=== PATIENT | male | born 1940 | race Caucasian/White ===

== ENCOUNTER 2020-08-02 13:12 | Outpatient (CLI) | payer MEDICARE, SELFPAY ==
[2020-08-02 14:15] LABS: Alanine Aminotransferase 19 U/L (16-63); Alkaline Phosphatase 44 U/L (46-116); Anion Gap 11 mmol/L (8-16); Aspartate Amino Transferase 22 U/L (15-37); Bilirubin,Total 0.8 mg/dL (0.00-1.00); Blood Urea Nitrogen 29 mg/dL (7-18); Calcium 9.3 mg/dL (8.5-10.1); Carbon Dioxide 26 mmol/L (21-32); Chloride 99 mmol/L (98-108); Estimated Glomerular Filt Rate 25; Glucose 98 mg/dL (70-99); Osmolality Calculated 287 mOsm/kg (285-295); Potassium 4.2 mmol/L (3.5-5.1); Prostate Specific Antigen 6.2 ng/mL (< OR = 4.0); Sodium 136 mmol/L (136-145); Total Protein 7.1 g/dL (6.4-8.2)
== END 2020-08-02 13:13 | disposition home or self-care (01) ==
LOC: CHSLAB 13:14
PROVIDERS: PCP Nurse Practitioner Family; Visit Provider Urology
DX: C61 Malignant neoplasm of prostate (principal)
CPT/HCPCS: 36415; 80053; 84153

== ENCOUNTER 2020-09-13 14:54 | Outpatient (CLI) | payer MEDICARE, MEDICAID, SELFPAY ==
--- NOTE | 2020-09-13 14:57 | ECG_ITS ---
Measurements Intervals [place] Rate: 55 P: 69 [place]: 214 QRS: -46 QRSD: 144 T: 51 QT: 467 QTc: 448 Interpretive Statements SINUS BRADYCARDIA WITH FIRST DEGREE AV BLOCK RIGHT BUNDLE BRANCH BLOCK LEFT ANTERIOR FASCICULAR BLOCK BASELINE ARTIFACT- II, III, AVF ABNORMAL ECG Electronically Signed On 09-13-2020 16:00:31 CDT by Johnie Messina D.O.
[2020-09-13 15:15] LABS: Basophils Absolute Auto 0.07 K/mm3 (0.00-0.10); Basophils Percent Auto 0.9 % (0.0-1.0); Eosinophils Absolute Auto 0.32 K/mm3 (0.02-0.50); Hematocrit 40.3 % (37.0-46.0); Hemoglobin 13.7 g/dL (12.4-15.3); Immature Granulocyte Absolute 0.05 K/mm3 (0.00-0.00); Immature Granulocyte Percent A 0.6 % (0.0-0.0); Lymphocytes Absolute Auto 1.96 K/mm3 (1.10-4.50); Lymphocytes Percent Auto 24.3 % (18.0-42.0); Mean Corpuscular Hemoglobin 31.6 pg (27.0-31.0); Mean Corpuscular Volume 93.1 fL (78.0-102.0); Monocytes Absolute Auto 0.66 K/mm3 (0.10-0.90); Monocytes Percent Auto 8.2 % (2.0-11.0); Platelet Count Result 229 K/mm3 (150-420); Red Blood Count 4.33 M/mm3 (4.70-6.10); Red Cell Distribution Width 12.6 % (11.6-14.4); White Blood Count 8.1 K/mm3 (4.8-10.8)
[2020-09-13 15:24] LABS: Alanine Aminotransferase 20 U/L (16-63); Alkaline Phosphatase 50 U/L (46-116); Anion Gap 11 mmol/L (8-16); Aspartate Amino Transferase 12 U/L (15-37); Bilirubin,Total 0.8 mg/dL (0.00-1.00); Blood Urea Nitrogen 27 mg/dL (7-18); Calcium 9.3 mg/dL (8.5-10.1); Carbon Dioxide 24 mmol/L (21-32); Chloride 100 mmol/L (98-108); Estimated Glomerular Filt Rate 25; Glucose 91 mg/dL (70-99); Magnesium 1.6 mg/dL (1.8-2.4); Osmolality Calculated 285 mOsm/kg (285-295); Sodium 135 mmol/L (136-145); Total Protein 7.3 g/dL (6.4-8.2)
[2020-09-16 19:45] LABS: Vitamin D 25 Hydroxy 12 ng/mL (30-100)
== END 2020-09-13 14:55 | disposition home or self-care (01) ==
LOC: CHSLAB 14:56
PROVIDERS: PCP Nurse Practitioner Family; Visit Provider Nurse Practitioner Family
DX: R00.2 Palpitations (principal); R53.1 Weakness; Z79.899 Other long term (current) drug therapy
CPT/HCPCS: 36415; 80053; 82306; 83735; 85025; 93005

== ENCOUNTER 2020-10-14 20:22 | Inpatient (IN) | payer MEDICARE, MEDICAID, SELFPAY ==
--- NOTE | ~2020-10-14 | XR_ITS ---
XR chest 1V portable DATE: 10/14/2020 20:59 INDICATION: Cough, congestion, hypertension TECHNIQUE: 2 portable AP views on 10/14/2020 at 2100 hours COMPARISON: None FINDINGS: Normal heart size. No hilar or mediastinal enlargement. No pulmonary infiltrate or consolidation, pleural effusion or pulmonary vascular congestion or pneumo thorax is detected. Diffuse osteopenia. IMPRESSION: No active cardiopulmonary disease Reviewed, dictated and finalized at location A.
[2020-10-14 20:29] VITALS: BP 145/69; PULSE 62; RESP 16; TEMP 36.7; O2SAT 97
[2020-10-14 20:34] VITALS: BP 145/69; PULSE 60; RESP 13; O2SAT 98
--- NOTE | 2020-10-14 20:41 | ECG_ITS ---
Measurements Intervals [place] Rate: 57 P: 70 [place]: 213 QRS: -70 QRSD: 149 T: 51 QT: 439 QTc: 430 Interpretive Statements SINUS BRADYCARDIA WITH FIRST DEGREE AV BLOCK RIGHT BUNDLE BRANCH BLOCK LEFT ANTERIOR FASCICULAR BLOCK ABNORMAL ECG Electronically Signed On 10-15-2020 7:37:47 CDT by Johnie Messina D.O.
--- NOTE | 2020-10-14 20:42 | ED.SOB ---
HPI - SOB/Dyspnea General Chief Complaint: Shortness of Breath/Dyspnea Stated Complaint: lung congestion Time Seen by Provider: 10/14/20 20:29 Source: RN notes reviewed History of Present Illness HPI Narrative: Patient presents to emergency department from home for shortness of breath. Patient states symptoms began 3 days ago. States that his lungs feel tight and he feels that there is congestion in them but he cannot bring them up he states that he has had no fevers or chills denies any chest pain or abdominal pain does note occasional nausea he states that he has been coughing hard to bring up the congestion he feels that is been nonproductive denies any other symptoms at this time denies any tobacco use Related Data Allergies Allergy/AdvReac Type Severity Reaction Status Date / Time amlodipine Allergy Intermediate angioedema Verified 10/14/20 21:07 Review of Systems Review of Systems: Narrative: Gen.: Denies fevers or chills Eyes: Denies eye pain or visual change ENT: Denies congestion Respiratory: see HPI CV: Denies chest pain or palpitations GI: Denies abdominal pain nausea, emesis or diarrhea Musculoskeletal: Denies back pain or muscle pain Neuro: Denies numbness, tingling, weakness or focal weakness Skin: Denies rash Except as documented, all other systems reviewed and negative [facility] Past Medical History Medical History Erectile dysfunction HTN (hypertension) Kidney function abnormal Primary osteoarthritis Surgical History Surgical History No pertinent past surgical history Social History Social History Smoking status: Never smoker Tobacco type: cigarettes Alcohol intake: never Substance use: never Substance use type: does not use Exam Narrative: Exam Narrative: APPEARANCE: No acute distress, nontoxic, resting in bed EYES: EOMI HEENT: Normocephalic, atraumatic, OMM RESPIRATORY: No respiratory distress Clear to auscultation bilaterally with no rhonchi wheezing or rales. CARDIOVASCULAR: Regular rate and rhythm without murmurs rubs or gallops. ABDOMINAL: Soft, nontender, nondistended, no rebound or guarding MUSCULOSKELETAl: Moves all extremities. No clubbing, cyanosis or edema. NEURO: Awake and alert. Following commands, speech normal, no focal deficits SKIN:: Warm, dry. No rashes lesions or abrasions PSYCHIATRIC: Normal affect/mood, Course Course Emergency Course: Discussed with Dr. Camargo presentation work-up agrees with admission at this time request consult cardiology in a.m. Discussed with patient and family results of workup and diagnosis. Discussed need for admission. Patient and family understand and agree to current treatment plan Vital Signs Vital signs: Vital Signs Temperature 98.1 F 10/14/20 20:29 Pulse Rate 62 10/14/20 20:29 Respiratory Rate 16 10/14/20 20:29 Blood Pressure 145/69 H 10/14/20 20:29 Pulse Oximetry 97 10/14/20 20:29 Temperature 98.1 F 10/14/20 20:29 Pulse Rate 50 L 10/14/20 21:40 Respiratory Rate 20 10/14/20 21:40 Blood Pressure 120/77 10/14/20 21:04 Pulse Oximetry 99 10/14/20 21:04 MDM - SOB/Dyspnea Lab Data Result diagrams: 10/14/20 20:53 10/14/20 20:53 Labs: Lab Results 10/14/20 10/14/20 10/14/20 Range/Units 20:53 20:53 20:53 WBC 6.8 (4.5-10.0) K/mm3 RBC 4.38 L (4.6-6.20) M/mm3 Hgb 13.8 L (14.0-18.0) g/dL Hct 39.9 L (42.0-52.0) % MCV 91.1 (80-100) fl MCH 31.5 (26-34) pg MCHC 34.6 (32-36) g/dl RDW 12.5 (11.5-14.5) % Plt Count 228 (150-375) k/mm3 MPV 10.0 (7.4-10.4) fl Immature Gran % (Auto) 0.6 H (0-0.5) % Neut % (Auto) 68.8 (45.5-73.1) % Lymph % (Auto) 19.0 (18.3-44.2) % Vance % (Auto) 7.2 (2.6-8.5) % Eos % (Auto) 3.7 (0-4.4) % Baso % (Au
[2020-10-14 21:03] LABS: Basophils Absolute Auto 0.1 K/mm3 (0.0-0.1); Basophils Percent Auto 0.7 % (0.2-1.2); Eosinophils Absolute Auto 0.3 K/mm3 (0-0.3); Eosinophils Percent Auto 3.7 % (0-4.4); Hematocrit 39.9 % (42.0-52.0); Hemoglobin 13.8 g/dL (14.0-18.0); Immature Granulocyte Absolute 0.04 K/mm3 (0.00-0.031); Immature Granulocyte Percent A 0.6 % (0-0.5); Lymphocytes Absolute Auto 1.29 K/mm3 (0.9-3.2); Mean Corpuscular HGB Conc 34.6 g/dl (32-36); Mean Corpuscular Hemoglobin 31.5 pg (26-34); Mean Corpuscular Volume 91.1 fl (80-100); Monocytes Absolute Auto 0.5 K/mm3 (0.1-0.6); Monocytes Percent Auto 7.2 % (2.6-8.5); Neutrophils Absolute Auto 4.7 K/mm3 (1.3-6.7); Neutrophils Percent Auto 68.8 % (45.5-73.1); Platelet Count Result 228 k/mm3 (150-375); Red Blood Count 4.38 M/mm3 (4.6-6.20); Red Cell Distribution Width 12.5 % (11.5-14.5); White Blood Count 6.8 K/mm3 (4.5-10.0)
[2020-10-14 21:04] VITALS: BP 120/77; PULSE 54; RESP 11; O2SAT 99
[2020-10-14 21:12] LABS: INR 0.9; Prothrombin Time 13.2 Seconds (11.1-14.7)
[2020-10-14 21:13] LABS: Partial Thromboplastin Time 26.4 SECONDS (22.3-36.8)
[2020-10-14 21:14] LABS: Alanine Aminotransferase 15 U/L (4-50); Albumin Level 4.2 g/dL (3.5-5.1); Alkaline Phosphatase 50 U/L (38-126); Anion Gap 12 mmol/L (8-16); Aspartate Amino Transferase 25 U/L (17-59); Bilirubin,Total 0.7 mg/dL (0.2-1.3); Blood Urea Nitrogen 33 mg/dL (9-20); Calcium 10.2 mg/dL (8.4-10.2); Carbon Dioxide 22 mmol/L (22-30); Chloride 102 mmol/L (98-107); Estimated CRCL calculation 22 ml/min; Estimated Glomerular Filt Rate 24; Glucose 143 mg/dL (75-110); Lipase 193 U/L (23-300); Potassium 3.4 mmol/L (3.4-5.0); Sodium 136 mmol/L (137-145)
[2020-10-14 21:25] LABS: NT Pro B Type Natriuretic Pept 273 pg/mL (5-100)
[2020-10-14] MEDS: ALBUTEROL SULFATE NEB 2.5 MG/0.5 ML INH 5 MG INHALATION (21:37)
[2020-10-14 21:40] VITALS: PULSE 50; RESP 20
[2020-10-14 21:40] LABS: Troponin I 0.044 ng/mL (0.000-0.034)
[2020-10-14] MEDS: IPRATROPIUM BR 0.02% INH SOLN 0.5 MG/2.5 ML VIAL INHALATION (21:41)
--- NOTE | 2020-10-14 22:10 | PM.IMHP ---
H&P: HPI History of Present Illness Date/Time: 10/15/20 01:00 Chief Complaint: shortness of breath Narrative: Patient presents to emergency department from home for shortness of breath and inability to cough since past 3 days. he reprots he felt like his lungs were tight and he was tryign to cough it up but was not able to and hence felt short of breath. he then comes to the ED for evaluation. he was given breathing treatment and he feels a little better currently. his workup with cxr and troponin and ekg was unremarkable. he is admitted under observation for further evaluation and monitoring. he reports that he was mowing his yard with a independent producer couple of weeks ago when he started having sob and chest pressure with diaphoreiss. this resolved but since then he has been having issues with vague palpitations and chest pressure etc and cough. he went to his pcp for evaluation. noted to hve bradycardia, he was on atenolol and also propranolol for his tremor. with bradycardia, he was advised to stop one of those. however he has not as he will feel more worse stopping them. he went to see switch inspector Dr. Langford and was planned to have nuclear stress test which is scheduled for this mid October. He is never smoker, no aclhol. no prior hx of heart disease. he has essential tremor and htn for which he takes medications regularly. Review of Systems Review of Systems: Narrative: - CONSTITUTIONAL: Denies weight loss, fever and chills. - HEENT: Denies changes in vision and hearing - RESPIRATORY: reports SOB and cough. - CV: reports palpitations and CP. - GI: Denies abdominal pain, nausea, vomiting and diarrhea. - : Denies dysuria and urinary frequency. - MSK: Denies myalgia and joint pain. - SKIN: Denies rash and pruritus. - NEUROLOGICAL: Denies headache and syncope. - PSYCHIATRIC: Denies recent changes in mood. Denies anxiety and depression. All systems reviewed & are unremarkable except as noted in HPI and below Constitutional: Constitutional: Reports fatigue and Reports weakness Neurologic: Reports weakness Endocrine: Endocrine: Reports fatigue [facility] Past Medical History Medical History Erectile dysfunction HTN (hypertension) Kidney function abnormal Primary osteoarthritis Surgical History Surgical History No pertinent past surgical history Family History Family History (Updated 10/15/20 @ 00:29 by Nikia Mahan RN) Father Stomach cancer Sibling Brain cancer Other Pancreatic cancer Social History Social History Smoking status: Never smoker Tobacco type: cigarettes Alcohol intake: never Substance use: never Substance use type: does not use Spiritual care concerns: No Meds Home Medications and Allergies Home Medications Medication Instructions Recorded Confirmed Type magnesium chloride 64 mg 64 mg PO DAILY #30 tablet 09/13/20 Rx (magnesium chloride) tablet,delayed release lisinopril 20 1 tablet PO DAILY #90 tablet 09/14/20 Rx mg-hydrochlorothiazide 25 mg tablet cholecalciferol (vitamin D3) 1,250 1,250 mcg PO WEEKLY #8 cap 09/18/20 Rx mcg (50,000 unit) capsule sertraline 25 mg tablet 25 mg PO DAILY #30 tablet 10/03/20 10/03/20 Rx Allergies Allergy/AdvReac Type Severity Reaction Status Date / Time amlodipine Allergy Intermediate angioedema Verified 10/14/20 21:07 Vital Signs Vital Signs - 24 hr 10/14/20 20:29 10/14/20 20:34 10/14/20 21:04 Temperature 98.1 F Pulse Rate 62 60 54 L Respiratory Rate 16 13 11 L Blood Pressure 145/69 H 145/69 H 120/77 Pulse Oximetry 97 98 99 10/14/20 21:40 Temperature Pulse Rate 50 L Respiratory Rate 20 Blood Pressure Pulse Oximetry Exam Narrative: Exam Narrative: GENERAL: The patient is well developed, not in acute distress
[2020-10-14 22:31] VITALS: BP 155/68; PULSE 50; RESP 14; O2SAT 100
[2020-10-15] VITALS (10 sets, daily range): BP systolic 109–185; BP diastolic 59–86; PULSE 40–64; RESP 14–16; TEMP 36.3–36.6; O2SAT 97–100
--- NOTE | 2020-10-15 00:08 | ADMGEN ---
This patient, River Sandhu, was admitted to IMU Room 203-01. Patient/family oriented to hospital policies and general routines including ID bracelet, bed and alarms, visiting hours, pain management, procedures, bathroom and other care routines, personal items, smoking policy, room service/diet, and visiting hours. Information on how to activate the Rapid Response Team has been discussed. Patient/Family are encouraged to report perceived risks to care and to ask questions if they do not understand what they are told or what they should do.
[2020-10-15 05:38] LABS: Basophils Absolute Auto 0.1 K/mm3 (0.0-0.1); Basophils Percent Auto 0.7 % (0.2-1.2); Eosinophils Absolute Auto 0.3 K/mm3 (0-0.3); Eosinophils Percent Auto 3.9 % (0-4.4); Hematocrit 39.4 % (42.0-52.0); Hemoglobin 13.5 g/dL (14.0-18.0); Immature Granulocyte Absolute 0.04 K/mm3 (0.00-0.031); Immature Granulocyte Percent A 0.5 % (0-0.5); Lymphocytes Absolute Auto 2.38 K/mm3 (0.9-3.2); Mean Corpuscular HGB Conc 34.3 g/dl (32-36); Mean Corpuscular Hemoglobin 31.6 pg (26-34); Mean Corpuscular Volume 92.3 fl (80-100); Mean Platelet Volume 10.7 fl (7.4-10.4); Monocytes Absolute Auto 0.7 K/mm3 (0.1-0.6); Neutrophils Absolute Auto 4.7 K/mm3 (1.3-6.7); Neutrophils Percent Auto 56.9 % (45.5-73.1); Platelet Count Result 214 k/mm3 (150-375); Red Blood Count 4.27 M/mm3 (4.6-6.20); Red Cell Distribution Width 12.4 % (11.5-14.5); White Blood Count 8.2 K/mm3 (4.5-10.0)
[2020-10-15 05:47] LABS: Alanine Aminotransferase 15 U/L (4-50); Albumin Level 3.9 g/dL (3.5-5.1); Alkaline Phosphatase 44 U/L (38-126); Anion Gap 10 mmol/L (8-16); Aspartate Amino Transferase 22 U/L (17-59); Bilirubin,Total 0.5 mg/dL (0.2-1.3); Blood Urea Nitrogen 32 mg/dL (9-20); Calcium 9.9 mg/dL (8.4-10.2); Carbon Dioxide 25 mmol/L (22-30); Chloride 102 mmol/L (98-107); Estimated CRCL calculation 24 ml/min; Estimated Glomerular Filt Rate 26; Glucose 120 mg/dL (75-110); Potassium 3.2 mmol/L (3.4-5.0); Sodium 137 mmol/L (137-145)
[2020-10-15 06:01] LABS: Troponin I 0.079 ng/mL (0.000-0.034)
[2020-10-15] MEDS: HEPARIN SODIUM 5,000 UNITS/ML VIAL 5000 UNITS SUB-Q ×2 (06:29→13:01)
[2020-10-15] MEDS: POTASSIUM CHLORIDE 20 MEQ TABLET PO (06:29)
[2020-10-15] MEDS: MAGNESIUM CHLORIDE 64 MG TABLET PO (09:38)
[2020-10-15] MEDS: guaiFENesin 12 HR 600 MG TABCR PO (09:39)
[2020-10-15] MEDS: lisinopriL 20 MG TABLET PO (09:39)
[2020-10-15] MEDS: hydroCHLOROthiazide 25 MG TABLET PO (09:39)
--- NOTE | 2020-10-15 09:41 | PM.CNCAR ---
Assessment and Plan Assessment and plan (1) Bradycardia: Code(s): R00.1 - Bradycardia, unspecified Status: Acute Assessment and Plan: Patient with bradycardia and bifascicular block which may be medication related. He has continued take his atenolol and propranolol until, he states, 2 - 3 days ago which, if that is the case, I'm surprised he is still bradycardic. He may have some underlying sinus node dysfunction contributing to his symptoms. 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 Continue to stay off beta-blockers and follow heart rate. (2) Elevated troponin: Code(s): R77.8 - Other specified abnormalities of plasma proteins Status: Acute Assessment and Plan: Mildly elevated troponin as described. No ischemic changes on EKG. Patient had a Lexiscan scheduled for later this month but we will do it tomorrow instead. (3) Chest tightness: Code(s): R07.89 - Other chest pain Status: Acute Assessment and Plan: Vague symptoms of ?lung tightness? and a feeling of congestion. No typical angina but symptoms could be anginal equivalents. Lexiscan stress test tomorrow. Echo scheduled also. (4) CKD (chronic kidney disease) stage 4, GFR 15-29 ml/min: Code(s): N18.4 - Chronic kidney disease, stage 4 (severe) Status: Acute Assessment and Plan: Trying to avoid exposure to IV contrast (such as for cardiac catheterization) to preserve renal function. (5) HTN (hypertension): Code(s): I10 - Essential (primary) hypertension Status: Acute Assessment and Plan: Blood pressure doing well on lisinopril HCT, off atenolol. History of Present Illness History of Present Illness Consult date/time: 10/15/20 09:41 Requesting physician: Twan Camargo MD Consult reason: Other Reason For Visit: Elevated troponin, dyspnea Narrative: Mr. River Sandhu is an 80-year-old male whom we were asked to see at the request of the hospitalist for advice and opinion regarding his shortness of breath and bradycardia. Mr. Sandhu John Dr. Langford for an initial consultation in the office on 09/26/2020 complaining have 1 episode of palpitations while cutting the grass associated with weakness and diaphoresis, and later developed transient parathesias of his hands, suggestive of angina. He was also noted to be bradycardic with a bifascicular block and a first-degree AV block. He was taking atenolol (for HTN) and propranolol (for essential tremor). Dr. Langford scheduled a Lexiscan stress test and recommended discontinuation of beta-blockers. Patient tried cutting out the beta-blockers but ?felt terrible,? and resumed them. He has stopped them again, 2 or 3 days ago. He came to the emergency room because of congestion, a feeling of phlegm but could not cough it out, and some vague lung tightness. He just did not feel right. Symptoms improved with nebulizer tx. No shortness of breath. He was noted to be bradycardic heart rates in the 30s to 60s, mostly in the 40s. He was admitted for evaluation. His troponins are up to 0.079. The patient also has hypertension, and essential tremor, CKD stage 3-4. Review of Systems Review of Systems: Narrative: Patient has found walking wears him out more than he used to and has started using his cane again. Constitutional: Constitutional: Reports no additional constitutional complaints Eyes: Eyes: Reports no additional eye complaints ENT: Denies nasal congestion Comments: Denies problems with allergies Cardiovascular: Cardiovascular: Denies chest pain, Reports diaphoresis, Denies pedal edema and Denies lightheadedness Comments: 1 episodes of palpitations after cutting the grass as described. Some vague chest tightness but no pressure. No arm discomfort. Respirat
--- NOTE | 2020-10-15 14:43 | PM.IMPN ---
Progress Note: A&P Assessment and Plan (1) Elevated troponin: Code(s): R77.8 - Other specified abnormalities of plasma proteins Status: Acute Assessment and Plan: 0.044-->0.079 ecg with no acute changes cxr cardiology consulted, recommendations appreciated ECHO ST tomorrow tele monitoring (2) Acute dyspnea: Code(s): R06.00 - Dyspnea, unspecified Status: Acute Assessment and Plan: resolved (3) Anxiety: Code(s): F41.9 - Anxiety disorder, unspecified Status: Acute (4) Heart palpitations: Code(s): R00.2 - Palpitations Status: Acute Assessment and Plan: resolved (5) CKD (chronic kidney disease) stage 4, GFR 15-29 ml/min: Code(s): N18.4 - Chronic kidney disease, stage 4 (severe) Status: Acute Assessment and Plan: #baseline cr mid 2s cr 2.4 avoid nephrotoxins monitor (6) HTN (hypertension): Code(s): I10 - Essential (primary) hypertension Status: Acute Assessment and Plan: continue home meds monitor (7) Bradycardia: Code(s): R00.1 - Bradycardia, unspecified Status: Acute Assessment and Plan: holding BB cardiology consulted, recommendations appreciated ST tomorrow tele monitoring Additional Plan patient admitted under observation status. Subjective Date/time seen: 10/15/20 14:43 pt seen and evaluated; continues with bradycardia Review of Systems Review of Systems: All systems reviewed & are unremarkable except as noted in HPI and below Exam Const: General: no acute distress, alert and awake Orientation/consciousness: patient oriented x3 HENMT: Head: normocephalic and atraumatic Ears: hearing grossly normal bilaterally and external ears normal Face and sinus: face symmetric Eyes: Pupils: Equal, round and reactive pupils present EOM: EOMs intact bilaterally Neck: Neck: full ROM and trachea midline Thyroid: thyroid normal Chest: Chest palpation & inspection: normal inspection of the chest Resp: Effort & Inspection: normal respiratory effort Auscultation: clear to auscultation bilaterally Cardio: Rate: regular rate Rhythm: regular rhythm Heart sounds: S1 normal heart sound present and S2 normal heart sound present GI: Inspection: normal to inspection GI Palp: Yes Soft to palpation Percussion: Yes normal to percussion Auscultation: normal bowel sounds : General: Yes no CVA tenderness Back/Spine/Pelvis: Back: no CVA tenderness Skin: General skin exam: normal color Rashes: no rashes Neuro: General: patient oriented x3 Cranial nerves: Yes Equal, round and reactive pupils present Speech: normal speech Extrem: Left lower extremity: full ROM Other: RBKA Psych: Appearance: grossly normal Affect: normal affect Judgement: Good judgement present (Psych) Objective Data Vital Signs Vital Signs: Vital Signs - 24 hr 10/14/20 20:29 10/14/20 20:34 10/14/20 21:04 Temperature 36.7 C Pulse Rate 62 60 54 L Respiratory Rate 16 13 11 L Blood Pressure 145/69 H 145/69 H 120/77 Pulse Oximetry 97 98 99 10/14/20 21:40 10/14/20 22:31 10/15/20 00:17 Temperature 36.3 C L Pulse Rate 50 L 50 L 64 Respiratory Rate 20 14 16 Blood Pressure 155/68 H 185/86 H Pulse Oximetry 100 100 10/15/20 02:00 10/15/20 03:48 10/15/20 04:00 Temperature 36.4 C L Pulse Rate 58 L 47 L 56 L Respiratory Rate 16 Blood Pressure 136/70 Pulse Oximetry 97 10/15/20 06:00 10/15/20 08:00 10/15/20 12:00 Temperature 36.6 C 36.5 C Pulse Rate 43 L 42 L 45 L Respiratory Rate 14 16 Blood Pressure 121/68 109/59 L Pulse Oximetry 98 98 Intake/Output Intake/Output: Intake & Output 10/12/20 10/13/20 10/14/20 10/15/20 23:59 23:59 23:59 23:59 Intake Total 480 Output Total 150 Balance 330 Meds/Results Medications: Active Medications Generic Name Dose Route Start Last Admin Trade Name Freq PRN Reason Stop Dose Admin Albuterol 2 puff
--- NOTE | 2020-10-15 18:01 | PC.NURSE ---
Pt called RN into room and stated he wanted to go home. He wishes to keep his original stress test date of 10/25. Risks of leaving against medical advice explained. Contacted Dr Kitchen (Hospitalist), Dr Grossman (Jeweler Apprentice), and Yael (manager of data)
--- NOTE | 2020-10-15 18:17 | PC.NURSE ---
Spoke with Dr. Grossman when she returned the call from the page to the exchange. Notified her that the patient left AMA after explaining risks of leaving and benefits of staying and completing his stress test in the morning. stated that she will make a note of his departure in his chart.
== END 2020-10-15 18:03 | disposition left against medical advice (07) | DRG 309 ==
LOC: ANHED 21:13 → ANHIMU 22:37
PROVIDERS: Admitting Provider Internal Medicine; Emergency Provider Emergency Medicine; PCP Nurse Practitioner Family; Visit Provider Internal Medicine
DX: R00.1 Bradycardia, unspecified (principal); N18.4 Chronic kidney disease, stage 4 (severe); T50.905A Adverse effect of unspecified drugs, medicaments and biological substances, initial encounter; I45.3 Trifascicular block; I25.119 Atherosclerotic heart disease of native coronary artery with unspecified angina pectoris; I12.9 Hypertensive chronic kidney disease with stage 1 through stage 4 chronic kidney disease, or unspecified chronic kidney disease; R77.8 Other specified abnormalities of plasma proteins; G25.0 Essential tremor; R06.00 Dyspnea, unspecified; F41.9 Anxiety disorder, unspecified; Z79.899 Other long term (current) drug therapy
CPT/HCPCS: 36415; 71045; 80048; 80053; 80076; 83690; 83880; 84484; 85025; 85610; 85730; 93005; 94640; 99285; A9270; J1644

== ENCOUNTER 2020-10-19 14:08 | Outpatient (CLI) | payer MEDICARE, MEDICAID, SELFPAY ==
--- NOTE | 2020-10-19 14:15 | ECHO_ITS ---
Patient Info Name: River Sandhu Age: 80 years : 1940 Gender: Male Ht: 72 in Wt: 190 lbs BSA: 2.10 m2 HR: 70 bpm BP: 125 / 66 mmHg Heart Rhythm: Sinus Rhythm Technical Quality: Poor Exam Date: 10/19/2020 2:39 PM Exam Location: [facility], [place] Patient Status: Outpatient Admit Date: 10/19/2020 Staff Ordering Physician: Chica Senior NP Chocolate Dipper: Aleshia López RDCS Attending Provider: Chica Senior NP Referring Physician: Parrish THOMPSON; Exam Type: CA echo dop color flow w con Study Info Indications R07.9 - Chest pain, unspecified Complete two-dimensional, color flow and Doppler transthoracic echocardiogram is performed with contrast to opacify the left ventricle and to improve the deliniation of the left ventricle endocardial borders. Strain analysis performed. Contrast/Agitated Saline Contrast/Ag. Saline: Definity Amount: 6.00 ml New IV Access: Antecubital Space and Right Site Condition: No extravasation, Site dressing applied and IV removed Reason for Poor Study: poor echocardiographic windows History/Risk Factors Hypertension: Yes Dyslipidemia: No Peripheral Arterial Disease (PAD): No Obesity: No Renal Disease: No Diabetes Mellitus: No Tobacco Use: Never Cerebrovascular Disease: No Family History: Coronary Artery Disease Dialysis: None Frailty Scale (CSHA): 4: Vulnerable Summary 1. Left ventricular chamber dimension is normal. 2. Definity contrast administered improved wall motion interpretation. 3. Left ventricular systolic function is normal, estimated at 60-65%. 4. There is mildly increased left ventricular wall thickness. 5. The left ventricular diastolic function is grade I diastolic dysfunction. 6. E/e' is minimally elevated. 7. Global longitudinal strain is abnormal at -13.7%. 8. There is mild aortic valve regurgitation. 9. No pulmonary hypertension, estimated pulmonary arterial systolic pressure is 21 mmHg. Left Ventricle E/e' is minimally elevated. Global longitudinal strain is abnormal at -13.7%. Definity contrast administered improved wall motion interpretation. Left ventricular chamber dimension is normal. Left ventricular systolic function is normal, estimated at 60-65%. There is mildly increased left ventricular wall thickness. The left ventricular diastolic function is grade I diastolic dysfunction. Right Ventricle Right ventricular systolic function is normal and with normal TAPSE 2.5 cm. Right ventricular chamber dimension is normal. Left Atria Left atrial chamber dimension is normal. Right Atria Right atrial chamber dimension is normal. Aortic Valve The aortic valve is trileaflet. There is no aortic valve stenosis. There is mild aortic valve regurgitation. Pulmonic Valve There is no pulmonic regurgitation. Mitral Valve There is no mitral valve stenosis. There is no mitral valve regurgitation. Tricuspid Valve There is no tricuspid valve regurgitation. No pulmonary hypertension, estimated pulmonary arterial systolic pressure is 21 mmHg. Pericardium/Pleural There is no pericardial effusion. Inferior Vena Cava Inferior vena cava is not well visualized. Aorta The aortic root size at the sinus of Valsalva is not well visualized. Left Ventricular Outflow Tract Name
== END 2020-10-19 14:09 | disposition home or self-care (01) ==
LOC: CHSIMG 14:10
PROVIDERS: PCP Nurse Practitioner Family; Visit Provider Nurse Practitioner Family
DX: R07.9 Chest pain, unspecified (principal)
CPT/HCPCS: C8929

== ENCOUNTER 2020-12-11 13:48 | Outpatient (CLI) | payer MEDICARE, MEDICAID, SELFPAY ==
--- NOTE | ~2020-12-11 | XR_ITS ---
[id number] DATE: 12/11/2020 14:17 INDICATION: Posterior lateral left chest, abdomen pain following a fall TECHNIQUE: PA chest. 3 views of left ribs COMPARISON: None FINDINGS: Mildly displaced posterolateral left eighth and ninth acute rib fractures. Diffuse osteopenia. There are degenerative changes at left acromioclavicular and glenohumeral joints. There is degenerati ve spurring and mild levoscoliosis of the thoracic spine. Normal heart size. Mild left basilar atelectasis. The lungs otherwise appear clear. No pleural effusion or apparent pneu mothorax. IMPRESSION: Recent mildly displaced posterolateral left eighth and ninth rib fractures Reviewed, dictated and finalized at Location [facility]. Reviewed, dictated and finalized at location B. IMPRESSION: Recent mildly displaced posterolateral left eighth and ninth rib fr actures
== END 2020-12-11 13:49 | disposition home or self-care (01) ==
PROVIDERS: PCP Nurse Practitioner Family; Visit Provider Nurse Practitioner Family
DX: R10.9 Unspecified abdominal pain (principal)
CPT/HCPCS: 71101

== ENCOUNTER 2021-03-01 13:33 | Outpatient (CLI) | payer MEDICARE, SELFPAY ==
[2021-03-01 14:38] LABS: Alanine Aminotransferase 18 U/L (16-63); Alkaline Phosphatase 63 U/L (46-116); Anion Gap 10 mmol/L (8-16); Aspartate Amino Transferase < 10 U/L (15-37); Bilirubin,Total 0.5 mg/dL (0.00-1.00); Blood Urea Nitrogen 23 mg/dL (7-18); Calcium 9.2 mg/dL (8.5-10.1); Carbon Dioxide 27 mmol/L (21-32); Chloride 103 mmol/L (98-108); Estimated Glomerular Filt Rate 29; Glucose 95 mg/dL (70-99); Osmolality Calculated 293 mOsm/kg (285-295); Potassium 4.3 mmol/L (3.5-5.1); Prostate Specific Antigen 5.6 ng/mL (< OR = 4.0); Sodium 140 mmol/L (136-145); Total Protein 7.1 g/dL (6.4-8.2)
== END 2021-03-01 13:34 | disposition home or self-care (01) ==
LOC: CHSLAB 13:35
PROVIDERS: PCP Nurse Practitioner Family; Visit Provider Urology
DX: C61 Malignant neoplasm of prostate (principal)
CPT/HCPCS: 36415; 80053; 84153

== ENCOUNTER 2021-10-03 12:40 | Outpatient (CLI) | payer OTHER, SELFPAY ==
[2021-10-03 14:01] LABS: Alanine Aminotransferase 16 U/L (16-63); Alkaline Phosphatase 66 U/L (46-116); Anion Gap 9 mmol/L (8-16); Aspartate Amino Transferase 15 U/L (15-37); Bilirubin,Total 0.6 mg/dL (0.00-1.00); Blood Urea Nitrogen 23 mg/dL (7-18); Calcium 9.2 mg/dL (8.5-10.1); Carbon Dioxide 26 mmol/L (21-32); Chloride 99 mmol/L (98-108); Estimated Glomerular Filt Rate 32; Glucose 94 mg/dL (70-99); Osmolality Calculated 281 mOsm/kg (285-295); Potassium 4.2 mmol/L (3.5-5.1); Prostate Specific Antigen 5.2 ng/mL (< OR = 4.0); Sodium 134 mmol/L (136-145)
== END 2021-10-03 12:41 | disposition home or self-care (01) ==
LOC: CHSLAB 12:43
PROVIDERS: PCP Nurse Practitioner Family; Visit Provider Urology
DX: C61 Malignant neoplasm of prostate (principal)
CPT/HCPCS: 36415; 80053; 84153

== ENCOUNTER 2023-04-28 16:07 | Inpatient (IN) | payer OTHER, SELFPAY ==
[2023-04-28] VITALS (11 sets, daily range): BP systolic 129–174; BP diastolic 71–100; PULSE 65–75; RESP 10–20; TEMP 36.2–36.4; O2SAT 97–100; BMI 23.4
--- NOTE | ~2023-04-28 | XR_ITS ---
Portable chest x-ray Comparison: 10/14/2020 Clinical History: Chest pain Findings: Lungs are clear, without focal consolidation or pleural effusion. Cardiomediastinal silho uette is stable. Bones and soft tissues are unremarkable. Impression: Clear lungs. Reviewed, dictated and finalized at [facility]. RVISOR MACHINING Impression: Clear lungs.
--- NOTE | ~2023-04-28 | CT_ITS ---
EXAMINATION: CT brain wo con DATE: 04/28/2023 16:49 INDICATION: Weakness after fall TECHNIQUE: Computed tomography (CT) of the head was performed without intravenous contrast. The dose- length product was 756.67 mGy-cm. Automated exposure control and iterative reconstruction technique w ere employed. COMPARISON: CT dated 04/28/2023 FINDINGS: No acute intracranial hemorrhage, infarction, mass or mass effect. No ventriculomegaly or m idline shift. Basilar cisterns are patent. There are scattered mild periventricular and subcortical w amanda matter changes, most likely related to small vessel ischemic disease (microangiopathy). Paranasa l sinuses and mastoids are pneumatized. No depressed skull fractures. IMPRESSION: 1. No acute intracranial abnormality. Reviewed, dictated and finalized at location A. RANCE BILLER
--- NOTE | ~2023-04-28 | CT_ITS ---
EXAMINATION: CT cervical spine wo con DATE: 04/28/2023 16:49 INDICATION: Status post fall. Weakness. Neck pain. TECHNIQUE: Computed tomography (CT) of the cervical spine was performed without intravenous contrast. The dose-length product was 542 mGy-cm. Automated exposure control and iterative reconstruction technique were employed. COMPARISON: None FINDINGS: There is severe disc narrowing at C5-6 and C6-7 with endplate hypertrophy at C5-6 causing b ilateral neural foraminal narrowing. There is degenerative anterolisthesis at C2-3 and C4-5. Vertebra l body heights are maintained. No evidence for perched facet. There are dystrophic calcifications in the posterior neck soft tissues. Craniovertebral junction is normal. Odontoid process within normal l imits. There is multilevel uncinate and facet hypertrophy. Lung apices are normal. There is carotid a therosclerosis. There is an 11 mm hypodense left thyroid mass, likely of no clinical significance. Th ere is apical pleural thickening/scarring. IMPRESSION: 1. No acute abnormality of the cervical spine. 2: Severe cervical spondylosis. Reviewed, dictated and finalized at location A. DRY ROOM ATTENDANT
--- NOTE | ~2023-04-28 | CT_ITS ---
EXAMINATION: CT chest abdomen pelvis wo con DATE: 04/28/2023 17:00 CAKE WINDER INDICATION: Status post fall. Weakness. TECHNIQUE: Computed tomography (CT) of the chest, abdomen, and pelvis was performed without intraveno us contrast. The dose-length product was 913.87 mGy-cm. Automated exposure control and iterative reconstruction technique were employed. COMPARISON: Renal ultrasound dated 09/23/2016 FINDINGS: CHEST CT: No significant pleural or pericardial effusion. Borderline heart size. No thoracic lymphadenopathy. T here is atherosclerosis. Calcified granuloma right upper lobe. No endobronchial lesions. There is dep endent atelectasis. No focal airspace consolidation. No pneumothorax. There is a chronic left ninth r ib fracture. There is degenerative change of the shoulders and hips. ABDOMEN/PELVIS CT: There are calcified granulomas of the spleen. There is severe bilateral hydroureteronephrosis to the bladder. There are are multiple bladder diverticula. No obstructing ureteral stone or mass. Prostate gland is enlarged. There is moderate fecal loading of the rectum. No bowel obstruction. There is bila teral renal atrophy. Bladder is markedly distended. The liver, pancreas, adrenal glands are unremarka ble. Mild thoracic and lumbar spondylosis. There is grade 1 spondylolisthesis at L3-4. IMPRESSION: 1. Severe bilateral hydroureteronephrosis to the level of the bladder without evidence for obstructin g stone or mass. The bladder is severely distended with multiple diverticula, likely due to outlet ob struction from enlarged prostate gland. There is bilateral renal atrophy. Reviewed, dictated and finalized at location A. WINDER IMPRESSION: 1. Severe bilateral hydroureteronephrosis to the level of the bladder without e vidence for obstructing stone or mass. The bladder is severely distended with m ultiple diverticula, likely due to outlet obstruction from enlarged prostate gl and. There is bilateral renal atrophy.
--- NOTE | ~2023-04-28 | US_ITS ---
EXAMINATION: US renal BI DATE: 04/29/2023 09:02 INDICATION: Acute renal failure TECHNIQUE: Multiple grayscale and Doppler ultrasound images of the kidneys were obtained. COMPARISON: 09/21/2016; CT from yesterday FINDINGS: The right kidney measures 10.2 x 4.4 x 5.3 cm. The left kidney measures 9.0 x 3.8 x 3.7 cm. The kidneys demonstrate normal parenchymal echogenicity. There is no hydronephrosis. The bladder is decompressed by Arroyo catheter. IMPRESSION: 1. Interval resolution of bilateral hydronephrosis post catheterization. Mild atrophy of the kidneys. Reviewed, dictated and finalized at location L. NCE WHEEL HAND FILER IMPRESSION: 1. Interval resolution of bilateral hydronephrosis post catheterization. Mild a trophy of the kidneys.
--- NOTE | 2023-04-28 16:12 | ECG_ITS ---
Measurements Intervals [place] Rate: 69 P: 81 [place]: 184 QRS: 105 QRSD: 138 T: 61 QT: 455 QTc: 489 Interpretive Statements SINUS RHYTHM BASELINE ARTIFACT RIGHT AXIS DEVIATION [QRS AXIS > 100] RIGHT BUNDLE BRANCH BLOCK [120+ ms QRS DURATION, UPRIGHT V1, 40+ ms S IN I/aVL/V4/V5/V6] ABNORMAL ECG COMPARED TO ECG 10/14/2020 20:31:45 SINUS RHYTHM NOW PRESENT Electronically Signed On 04-28-2023 17:05:40 BOTTLE PACKING MACHINE CLEANER by Rm Weston M.D.
--- NOTE | 2023-04-28 16:20 | ED.GENADULT ---
HPI - General Adult General Chief complaint: Fall Stated complaint: WEAKNESS Time Seen by Provider: 04/28/23 16:11 History of Present Illness HPI narrative: 82yo man brought by EMS after a neighbor called to check on the patient and police found him down in his home, in unsafe and unsanitary conditions, and unable to get up from the floor. Pt reports he fell outside on Friday. Made his way back inside and fell again, unable to get up, and has been laying on the floor for the past 3 days without food or water. Denies pain. Feels very thirsty. Related Data Allergies Allergy/AdvReac Type Severity Reaction Status Date / Time amlodipine Allergy Intermediate angioedema Verified 04/28/23 19:00 Review of Systems Review of Systems: All systems reviewed & are unremarkable except as noted in HPI and below Constitutional: Constitutional: Denies chills and Denies fever(s) Eyes: Eyes: Denies change in vision ENT: Denies dysphagia and Denies dizziness Cardiovascular: Cardiovascular: Denies chest pain Respiratory: Respiratory: Denies dyspnea Gastrointestinal: Gastrointestinal: Denies abdominal pain Musculoskeletal: Musculoskeletal: Denies back pain PMF Past Medical History Medical History Erectile dysfunction HTN (hypertension) Kidney function abnormal Primary osteoarthritis Surgical History Surgical History No pertinent past surgical history Family History Family History Father Stomach cancer Sibling Brain cancer Other Pancreatic cancer Mother Heart disease Cause of : CHF Social History Social History Social History: , lives alone with his cat, no biological children, estranged from his 4 step children. Closest relative is Nora hicks his sister. 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 Smoking status: Never smoker Tobacco type: cigarettes Second hand tobacco smoke exposure: No Alcohol intake: never Substance use: never Substance use type: does not use Do You Feel Safe in your Home?: Yes Lack of Transportation: No Lack of Food: Never True Current Housing: I Have Housing Concerned About Future Housing: No Difficulty Paying Gas/Electric Bills: No Difficulty Paying for Meds: No Currently Unemployed: No Education: Bachelor's Degree Difficulty w/ Childcare or Family Care: No Spiritual care concerns: No Exam Const: General: healthy appearing, confusion and ill appearing Nutritional Appearance: thin Orientation/consciousness: patient oriented x3 HENMT: Head: normal to inspection, no contusions and no hematomas Mouth: Yes dry mucous membranes Eyes: Other: conjunctivae injected with thickened mucous Neck: Neck: no meningeal signs Resp: Effort & Inspection: normal respiratory effort and not labored Auscultation: clear to auscultation bilaterally Cardio: Rate: regular rate Rhythm: regular rhythm Heart sounds: Murmur heart sound present GI: Inspection: non-distended GI Palp: Yes Soft to palpation and No Tenderness to palpation present (GI) Skin: General skin exam: normal color, no jaundice and no pallor Wounds: no wounds Neuro: General: patient oriented x3, moves all extremities, no meningeal signs, no focal motor deficits and CN's II-XI intact bilaterally Speech: normal speech Other: alert, but inattentive Extrem: General: no clubbing, cyanosis or edema Course Vital Signs Vital signs: Vital Signs Temperature 36.2 C L 04/28/23 16:11 Pulse Rate 71 04/28/23 16:11 Respiratory Rate 10 L 04/28/23 16:11 Blood Pressure 129/81 04/28/23 16:11 Pulse Oximetry 98 04/28/23 16:11 Oxygen Delivery Room Air 04/28/23 16:11 Temperature 36.2 C L
[2023-04-28 17:08] LABS: Basophils Absolute Auto 0.03 K/mm3 (0.00-0.10); Basophils Percent Auto 0.2 % (0.0-1.0); Hematocrit 40.7 % (37.0-46.0); Hemoglobin 13.7 g/dL (12.4-15.3); Immature Granulocyte Absolute 0.09 K/mm3 (0.00-0.00); Immature Granulocyte Percent A 0.7 % (0.0-0.0); Lymphocytes Absolute Auto 0.67 K/mm3 (1.10-4.50); Lymphocytes Percent Auto 4.9 % (18.0-42.0); Mean Corpuscular HGB Conc 33.7 g/dL (32.0-36.0); Mean Corpuscular Hemoglobin 31.5 pg (27.0-31.0); Mean Corpuscular Volume 93.6 fL (78.0-102.0); Monocytes Percent Auto 6.6 % (2.0-11.0); Neutrophils Absolute Auto 11.9 K/mm3 (1.7-7.2); Neutrophils Percent Auto 87.6 % (50.0-70.0); Platelet Count Result 247 K/mm3 (150-420); Red Blood Count 4.35 M/mm3 (4.70-6.10); Red Cell Distribution Width 12.6 % (11.6-14.4); White Blood Count 13.6 K/mm3 (4.8-10.8)
[2023-04-28 17:28] LABS: Lactic Acid Reflex 1.5 mmol/L (0.4-2.0)
[2023-04-28 17:37] LABS: Alanine Aminotransferase 69 U/L (16-63); Albumin Level 4.1 g/dL (3.4-5.0); Alkaline Phosphatase 45 U/L (46-116); Anion Gap 10 mmol/L (8-16); Aspartate Amino Transferase 253 U/L (15-37); Bilirubin,Total 1.4 mg/dL (0.00-1.00); Blood Urea Nitrogen 58 mg/dL (7-18); Calcium 9.9 mg/dL (8.5-10.1); Carbon Dioxide 27 mmol/L (21-32); Chloride 99 mmol/L (98-108); Estimated CRCL calculation 21 ml/min; Estimated Glomerular Filt Rate 23; Glucose 105 mg/dL (70-99); Magnesium 1.8 mg/dL (1.8-2.4); NT Pro B Type Natriuretic Pept 21916 pg/mL (0-450); Osmolality Calculated 298 mOsm/kg (285-295); Potassium 4.3 mmol/L (3.5-5.1); Sodium 136 mmol/L (136-145)
[2023-04-28] MEDS: SODIUM CHLORIDE 0.9% IV 1,000 ML 999 ML IV CONT ×2 (17:50→19:35)
[2023-04-28 17:52] LABS: Appearance Urine Clear (Clear); Bilirubin Urine Negative (Negative); Blood Urine 3+ (Negative); Color Urine Light Yellow (Yellow); Glucose Urine UA Negative (Negative); Ketones Urine Trace (Negative); Leukocyte Esterase Ur Negative LEU/UL (Negative); Nitrate Urine Negative (Negative); Protein Urine Trace (Negative); Urobilinogen Urine 0.2 mg/dL (0.2-1.0); pH Urine 5.5 (5.0-8.0)
[2023-04-28 17:55] LABS: Creatine Kinase > 1000 U/L (39-308)
[2023-04-28 18:21] LABS: Add Urine Microscopic? YES; Bacteria Urine 1+ /hpf; Squamous Epithelial Cell Urine None seen /hpf (Few); WBC Urine 0-3 /hpf (0-3)
--- NOTE | 2023-04-28 20:20 | ADMGEN ---
This patient, River Sandhu, was admitted to 2nd Floor Room 205-2. Patient/family oriented to hospital policies and general routines including ID bracelet, bed and alarms, visiting hours, pain management, procedures, bathroom and other care routines, personal items, smoking policy, room service/diet, and visiting hours. Information on how to activate the Rapid Response Team has been discussed. Patient/Family are encouraged to report perceived risks to care and to ask questions if they do not understand what they are told or what they should do.
[2023-04-28] MEDS: DEXTROSE 5%/LACTATED RINGERS 1,000 ML 150 ML IV CONT (21:04)
[2023-04-28] MEDS: HEPARIN SODIUM 5,000 UNITS/ML VIAL 5000 UNITS SUB-Q (21:05)
[2023-04-29] VITALS: BP 105/53; PULSE 58; RESP 17; TEMP 36.5; O2SAT 96
[2023-04-29] MEDS: DEXTROSE 5%/LACTATED RINGERS 1,000 ML 150 ML IV CONT ×2 (03:49→10:59)
[2023-04-29 04:00] VITALS: BP 136/94; PULSE 52; RESP 17; TEMP 36.4; O2SAT 96
--- NOTE | 2023-04-29 05:40 | PC.NURSE ---
Pt awake in bed, states he is hungry, sandwich given. Pt noted to have coarse tremors to BUE, causing difficulty with independent eating. Pt states he gets these tremors d/t being cold, warm blanket given with no improvement to tremors. Pt denies further needs at this time.
[2023-04-29 05:53] LABS: Hemoglobin 11.3 g/dL (12.4-15.3); Mean Corpuscular HGB Conc 34.2 g/dL (32.0-36.0); Mean Corpuscular Volume 93.5 fL (78.0-102.0); Platelet Count Result 180 K/mm3 (150-420); Red Blood Count 3.53 M/mm3 (4.70-6.10); Red Cell Distribution Width 12.9 % (11.6-14.4); White Blood Count 9.6 K/mm3 (4.8-10.8)
--- NOTE | 2023-04-29 05:59 | PC.NURSE ---
Patient was admitted at 2020 for rhabdomyolysis after fall at home where he laid on the floor for 4 days. Patient is exhibiting a tremor that is interfering with his activities of daily living, such as feeding himself. He denies pain. Range of motion is very limited to his lower extremities. Patient was unable to help move himself from the stretcher to the bed when transferred over from ED. Arroyo catheter is draining cristal urine. Patient did not drink very much water and may need cups half-full due to his tremors. Patient c/o hunger at 0540, stating that he had not had anything to eat for 4 days. Patient was given a sandwich and a soda, as breakfast is coming in 2 hours. Patient slept well until 0500 and has been awake since then. Per ED RN, patient has been accepted at [facility], but no beds were available so patient was admitted as Observation.
[2023-04-29 06:18] LABS: Alanine Aminotransferase 47 U/L (16-63); Albumin Level 2.7 g/dL (3.4-5.0); Alkaline Phosphatase 30 U/L (46-116); Anion Gap 4 mmol/L (8-16); Aspartate Amino Transferase 157 U/L (15-37); Blood Urea Nitrogen 42 mg/dL (7-18); Calcium 8.4 mg/dL (8.5-10.1); Carbon Dioxide 29 mmol/L (21-32); Chloride 103 mmol/L (98-108); Estimated CRCL calculation 25 ml/min; Estimated Glomerular Filt Rate 29; Glucose 128 mg/dL (70-99); Osmolality Calculated 294 mOsm/kg (285-295); Potassium 3.4 mmol/L (3.5-5.1); Sodium 136 mmol/L (136-145); Total Protein 5.4 g/dL (6.4-8.2)
[2023-04-29 06:19] LABS: Creatine Kinase 3583 U/L (39-308)
[2023-04-29 07:17] LABS: Magnesium 1.6 mg/dL (1.8-2.4)
[2023-04-29 08:00] VITALS: BP 148/96; PULSE 54; PULSE 60; RESP 18; TEMP 36.3; O2SAT 93
--- NOTE | 2023-04-29 08:00 | ECHO_ITS ---
Patient Info Name: River Sandhu Age: 82 years : 1940 Gender: Male Ht: 72 in Wt: 177 lbs BSA: 2.02 m2 HR: 79 bpm Technical Quality: Poor Exam Date: 04/29/2023 3:09 PM Exam Location: Echo Lab Patient Status: Inpatient Admit Date: 04/29/2023 Staff Ordering Physician: Gabby Zhao NP Construction Safety Consultant: Reggie Veras RDCS Attending Provider: Amauri Thompson MD Referring Physician: Pavel ARENAS; Exam Type: CA echo dop color flow w con Study Info Indications - ABN EKG , ELEVATED TROPONIN Complete two-dimensional, color flow and Doppler transthoracic echocardiogram is performed with contrast to opacify the left ventricle and to improve the deliniation of the left ventricle endocardial borders. Contrast/Agitated Saline Contrast/Ag. Saline: Definity Amount: 3.00 ml Reason for Poor Study: poor echocardiographic windows History/Risk Factors Hypertension: Yes Dyslipidemia: No Peripheral Arterial Disease (PAD): No Obesity: No Renal Disease: No Diabetes Mellitus: No Tobacco Use: Never Cerebrovascular Disease: No Family History: Coronary Artery Disease Dialysis: None Frailty Scale (CSHA): 4: Vulnerable Summary 1. Technically suboptimal study due to poor sonographic images. 2. Definity contrast administered improved wall motion interpretation. 3. Left ventricular chamber dimension is normal. 4. Left ventricular systolic function is normal, estimated at 65-70%. 5. There is mild concentric increased left ventricular wall thickness. 6. The left ventricular diastolic function is grade I diastolic dysfunction. 7. E/e' 11 is mildly elevated. 8. No pulmonary hypertension, estimated pulmonary arterial systolic pressure is 12 mmHg. Left Ventricle Technically suboptimal study due to poor sonographic images. Definity contrast administered improved wall motion interpretation. E/e' 11 is mildly elevated. Left ventricular chamber dimension is normal. Left ventricular systolic function is normal, estimated at 65-70%. There is mild concentric increased left ventricular wall thickness. The left ventricular diastolic function is grade I diastolic dysfunction. Right Ventricle Right ventricular chamber dimension is not well visualized. Left Atria Left atrial chamber dimension is normal. Right Atria Right atrial chamber dimension is normal. Aortic Valve The aortic valve is not well visualized. Cannot determine number of aortic valve leaflets. There is no aortic valve stenosis based on valve gradient. There is no aortic valve regurgitation. Pulmonic Valve There is no pulmonic regurgitation. Mitral Valve There is no mitral valve stenosis. There is no mitral valve regurgitation. Tricuspid Valve There is no tricuspid valve regurgitation. No pulmonary hypertension, estimated pulmonary arterial systolic pressure is 12 mmHg. Pericardium/Pleural There is no pericardial effusion. Inferior Vena Cava Inferior vena cava is not well visualized. Aorta The aortic root size at the sinus of Valsalva is normal. Left Ventricular Outflow Tract Name Value Normal LVOT Doppler LVOT Peak Velocity 114.30 cm/s LVOT Peak Gradient 3 mmHg LVOT Mean Gradient 2 mmHg
--- NOTE | 2023-04-29 09:19 | PM.IMHP ---
H&P: HPI History of Present Illness Date/Time: 04/29/23 09:19 Chief Complaint: Fall due to Severe Weakness Narrative: River is an 82yo man brought by EMS after a neighbor called to check on the patient and police found him down in his home, in unsafe and unsanitary conditions, and unable to get up from the floor. Pt reports he fell outside on Friday afternoon. Made his way back inside and fell again that same day, unable to get up, and has been laying on the floor for the past 3-4 days without food or water. Denies pain.Denies hitting or bumping his head. He felt very thirsty at ED admission. GCS 15 at ED admission. He will be admitted due to fall with prolonged downtime. He did get 3 L IVF bolus in ED. He was found to have bilateraly hydronephrosis and severe urinary retention, so a jackson catheter was placed with immediate return of 1L urine with myoglobinuria, no pyuria. CT yesterday showed: No significant pleural or pericardial effusion. Borderline heart size. No thoracic lymphadenopathy. There is atherosclerosis. Calcified granuloma right upper lobe. No endobronchial lesions. There is dependent atelectasis. No focal airspace consolidation. No pneumothorax. There is a chronic left ninth rib fracture. There is degenerative change of the shoulders and hips. ABDOMEN/PELVIS CT: There are calcified granulomas of the spleen. There is severe bilateral hydroureteronephrosis to the bladder. There are are multiple bladder diverticula. No obstructing ureteral stone or mass. Prostate gland is enlarged. There is moderate fecal loading of the rectum. No bowel obstruction. There is bilateral renal atrophy. Bladder is markedly distended. The liver, pancreas, adrenal glands are unremarkable. Mild thoracic and lumbar spondylosis. There is grade 1 spondylolisthesis at L3-4. IMPRESSION: 1. Severe bilateral hydroureteronephrosis to the level of the bladder without evidence for obstructing stone or mass. The bladder is severely distended with multiple diverticula, likely due to outlet obstruction from enlarged prostate gland. There is bilateral renal atrophy. Today, he is very weak, unable to even lean forward when asked. He would be a good Swing Bed candidate once PT and OT evaluate, he is fully rehydrated, his CPK and Trops have greatly improved, and VS stable. Today's EKGs findings are consistent with all his other EKGs noted in medical records. He did see Tongue And Groove Machine Operator [facility] in the past 2020 who noted his Bradycardia with RBBB at that time, so this is not new. CK 9000 at admission, is now down to CK 3583. Admission Cr 2.5 is now down to 2.16. [place] [address] [place] [address]. His BNP in October 2020 when he saw Tongue And Groove Machine Operator was baseline BNP 273. Continue IVFs and regular diet. Encourage PO hydration. No afib noted on EKG or tele. No current evidence of CHF, no wheezing no edema. Appears severely dehyrated now - so gentle slow hydration. Electrolyte imbalance, replacing as labs done. No Neuro deficits noted at this time, will have PT and OT evalute. No current bacterial infection or fracture found. Head CT was clear with no CVA evidence at that time. I suspect patient has undiagnosed Parkinson's Disease. Renal US today showed: The right kidney measures 10.2 x 4.4 x 5.3 cm. The left kidney measures 9.0 x 3.8 x 3.7 cm. The kidneys demonstrate normal parenchymal echogenicity. There is no hydronephrosis. The bladder is decompressed by Jackson catheter. IMPRESSION:1. Interval resolution of bilateral hydronephrosis post catheterization. Mild atrophy of the kidneys. Called [facility] and spoke to Dr Thompson's colleague Hospitalist who agreed that patient was stable enough to remain at [facility] for now. This would change if he started to have active chest pain or chest pressure or SOB, all of which he currently denies. They advised serial EKGs, serial LDH, and serial Lipase levels. Patient will be admitted INpatient due to Rhabdomyolysis, and will need to
[2023-04-29] MEDS: DOCUSATE SODIUM 100 MG CAPSULE PO (09:34)
[2023-04-29] MEDS: HEPARIN SODIUM 5,000 UNITS/ML VIAL 5000 UNITS SUB-Q ×2 (09:34→21:03)
--- NOTE | 2023-04-29 10:22 | ECG_ITS ---
Measurements Intervals [place] Rate: 60 P: 80 WA: 164 QRS: 109 QRSD: 150 T: 43 QT: 502 QTc: 503 Interpretive Statements SINUS RHYTHM RIGHT AXIS DEVIATION [QRS AXIS > 100] RIGHT BUNDLE BRANCH BLOCK [120+ ms QRS DURATION, UPRIGHT V1, 40+ ms S IN I/aVL/V4/V5/V6] COMPARED TO ECG 04/28/2023 17:03:34 NO SIGNIFICANT CHANGES Electronically Signed On 04-29-2023 13:22:17 MULTI LINE CLAIMS ADJUSTER by Autumn Kerr M.D.
[2023-04-29] MEDS: MAGNESIUM OXIDE 400 MG TABLET PO ×2 (11:00→16:57)
[2023-04-29] MEDS: POTASSIUM CHLORIDE 20 MEQ ER TABLET 40 MEQ PO (11:27)
[2023-04-29 11:51] LABS: Troponin I 4556.3 ng/L (0.00-60.4)
[2023-04-29 11:51] LABS: NT Pro B Type Natriuretic Pept 16215 pg/mL (0-450); Phosphorus 2.5 mg/dL (2.6-4.7)
[2023-04-29 11:52] LABS: CRP 2.3 mg/dL (0.0-0.9)
[2023-04-29 12:00] VITALS: BP 144/98; PULSE 58; PULSE 64; RESP 20; TEMP 36.2; O2SAT 94
[2023-04-29 12:29] LABS: Erythrocyte Sedimentation Rate 9 mm/hr (0-20)
[2023-04-29 13:31] LABS: Lactate Dehydrogenase 417 U/L (85-227); Lipase 65 U/L (16-77)
--- NOTE | 2023-04-29 14:38 | PTOPEVAL1 ---
Assessment and note entered by JT File, PT Reported Pain Level Pain Score No Pain: Duran Kinsey Pain Score 0: Self Report Pain Score 0: Self Report Pain Score 0: Self Report Additional Pain Score Comments denies pain at this time. These treatments will address the objective and functional deficits as defined above. The patient will be advanced safely and appropriately in order for the patient to progress towards his/her prior level of function. Additional exercises will be introduced and as well as a comprehensive home exercise program upon discharge, if needed, ?to ensure carryover of functional gains achieved in the clinic. This treatment plan has been reviewed and agreement upon by the patient.
--- NOTE | 2023-04-29 15:28 | PC.NURSE ---
1500 echo being done at this time. pt did eval prior to this. claims he is sore all over. will not try to help staff turn self or even wipe mouth or adjust pillow. does have tremors in hands and claims been there for at least 3 years.
[2023-04-29 16:00] VITALS: BP 153/97; PULSE 62; RESP 20; TEMP 36.8; O2SAT 96
[2023-04-29] MEDS: ACETAMINOPHEN 325 MG TABLET 650 MG PO (16:56)
[2023-04-29] MEDS: POTASSIUM/PHOSPHORUS/SODIUM 1.5 GM PACKET 1 PACKET PO (18:28)
[2023-04-29 20:00] VITALS: BP 147/99; PULSE 64; RESP 17; TEMP 36.4; O2SAT 100
[2023-04-29] MEDS: IBUPROFEN 400 MG TABLET PO (21:05)
[2023-04-29] MEDS: DEXTROSE 5%/LACTATED RINGERS 1,000 ML 100 ML IV CONT (21:15)
[2023-04-30] VITALS (10 sets, daily range): BP systolic 95–114; BP diastolic 50–98; PULSE 61–138; RESP 16–20; TEMP 36.1–36.6; O2SAT 94–100
[2023-04-30] MEDS: ONDANSETRON INJ 4 MG/2 ML VIAL IV PUSH (02:14)
--- NOTE | 2023-04-30 02:20 | PC.NURSE ---
Rapid response called due to pt's high blood pressure and c/o chest pain.
[2023-04-30] MEDS: NITROGLYCERIN SL 0.4 MG TABLET SUBLINGUAL (02:41)
--- NOTE | 2023-04-30 02:41 | PC.NURSE ---
Pt's blood pressure is 140/135; Nitro 0.4 mg given sublingual as ordered.
--- NOTE | 2023-04-30 02:45 | ECG_ITS ---
Measurements Intervals [place] Rate: 136 P: 209 MD: 141 QRS: 128 QRSD: 137 T: 24 QT: 333 QTc: 503 Interpretive Statements SUPRAVENTRICULAR TACHYCARDIA POSSIBLE ATRIAL FLUTTER RIGHT AXIS DEVIATION [QRS AXIS > 100] RIGHT BUNDLE BRANCH BLOCK ABNORMAL ECG COMPARED TO ECG 04/29/2023 11:41:11 SUPRAVENTRICULAR TACHYCARDIA POSSIBLE ATRIAL FLUTTER HAS REPLACED SINUS RHYTHM Electronically Signed On 04-30-2023 15:24:30 HEALTH OCCUPATIONS TEACHER by Rm Weston M.D.
--- NOTE | 2023-04-30 02:48 | PC.NURSE ---
Pt's blood pressure dropped to 59/37; Pt became unresponsive and a sternal rub was given. Pt became more responsive and alert. Pt placed in trendelenberg's position at this time.
--- NOTE | 2023-04-30 02:49 | PC.NURSE ---
Pt's blood pressure increased to 77/52; Pt more alert and able to respond to simple questions.
[2023-04-30 02:51] LABS: Base Excess ABG -2.6 mmol/L (0-2); Carboxyhemoglobin 0.3 % (0-1.5); HCO3 ABG 19.7 mmol/L (23-29); Methemoglobin ABG 0.5 % (0-1.5); Oxygen Saturation ABG 95.2 % (95-97); Oxyhemoglobin 94.4 % (94-100); PCO2 ABG 26.9 mmHg (35-45); PO2 ABG 73.9 mmHg (75-85); Reduced Hemoglobin 4.8 % (0-1.5); Site Drawn LEFT RADIAL; pH ABG 7.48 (7.35-7.45)
[2023-04-30 02:52] LABS: Device ROOM AIR; Modified Allen's Test Pass
--- NOTE | 2023-04-30 02:52 | PC.NURSE ---
Manual blood pressure taken and it was 122/50. Radiology here to take chest x-ray. Pulse still remains elevated at 134.
[2023-04-30 02:57] LABS: Basophils Absolute Auto 0.06 K/mm3 (0.00-0.10); Basophils Percent Auto 0.8 % (0.0-1.0); Eosinophils Absolute Auto 0.19 K/mm3 (0.02-0.50); Eosinophils Percent Auto 2.5 % (1.0-6.0); Hematocrit 33.9 % (37.0-46.0); Hemoglobin 11.3 g/dL (12.4-15.3); Immature Granulocyte Absolute 0.03 K/mm3 (0.00-0.00); Immature Granulocyte Percent A 0.4 % (0.0-0.0); Lymphocytes Absolute Auto 1.93 K/mm3 (1.10-4.50); Lymphocytes Percent Auto 25.7 % (18.0-42.0); Mean Corpuscular HGB Conc 33.3 g/dL (32.0-36.0); Mean Platelet Volume 10.7 fl (8.7-11.0); Monocytes Absolute Auto 0.62 K/mm3 (0.10-0.90); Monocytes Percent Auto 8.2 % (2.0-11.0); Neutrophils Absolute Auto 4.7 K/mm3 (1.7-7.2); Neutrophils Percent Auto 62.4 % (50.0-70.0); Platelet Count Result 169 K/mm3 (150-420); Red Blood Count 3.53 M/mm3 (4.70-6.10); White Blood Count 7.5 K/mm3 (4.8-10.8)
[2023-04-30] MEDS: LACTATED RINGERS 1,000 ML 999 ML IV CONT (03:05)
--- NOTE | 2023-04-30 03:07 | PC.NURSE ---
New order for oxygen at 2 liters to promote comfort; SAO2 is 97% with oxygen on at 2 liters.
[2023-04-30 03:09] LABS: Alanine Aminotransferase 57 U/L (16-63); Albumin Level 2.8 g/dL (3.4-5.0); Alkaline Phosphatase 36 U/L (46-116); Anion Gap 3 mmol/L (8-16); Aspartate Amino Transferase 139 U/L (15-37); Bilirubin,Total 0.7 mg/dL (0.00-1.00); Blood Urea Nitrogen 42 mg/dL (7-18); Calcium 8.7 mg/dL (8.5-10.1); Carbon Dioxide 29 mmol/L (21-32); Chloride 100 mmol/L (98-108); Estimated CRCL calculation 25 ml/min; Estimated Glomerular Filt Rate 28; Glucose 114 mg/dL (70-99); Osmolality Calculated 285 mOsm/kg (285-295); Potassium 3.9 mmol/L (3.5-5.1); Sodium 132 mmol/L (136-145); Total Protein 5.4 g/dL (6.4-8.2)
[2023-04-30 03:15] LABS: Troponin I 1691.5 ng/L (0.00-60.4)
--- NOTE | 2023-04-30 03:20 | PC.NURSE ---
At 0315, Spoke with Aleshia, supervisor shipping room at [facility]. She states they do not have a bed available on the cardiac floor, pt would have to go to ICU, when a bed is available. #[phone].
[2023-04-30] MEDS: MAGNESIUM SULF 2 GM/WATER 50ML 2 GM/50 ML BAG IVPB ×2 (03:22→04:55)
--- NOTE | 2023-04-30 03:22 | PC.NURSE ---
New order for magnesium 2 gm IVPB
[2023-04-30] MEDS: LACTATED RINGERS 1,000 ML 999 ML (03:28)
[2023-04-30] MEDS: IBUPROFEN 400 MG TABLET PO (03:33)
--- NOTE | 2023-04-30 03:34 | P.PCNBEDED_ITS ---
Rapid response was called overhead @ approx 2am. When I arrived at bedside the patient was complaining of diffuse chest pain , difficulty breathing and tingling in his hands and feet. He was hypertensive at 170/140 and tachycardic at in the 130s. 95% spo2 on RA. Repeat lab work, ABG, EKG and chest x-ray were obtained. EKG showed right bundle-branch block but was unchanged from previous EKGs on this admission outside of new tachycardia. Chest x-ray unremarkable. Repeat troponin was still down-trending. ABG unremarkable. Patient was given a SL nitroglycerin due to the chest pain and elevated blood pressures. Patient's blood pressure then dropped from 170/140 to 50/30. He was placed in reverse Trendelenburg given a 2 L bolus and his blood pressure returned to 120s/80s. Heart rate was still consistent in the 130s despite large swings in blood pressure. Patient was given 2 g of magnesium. Once the patient's blood pressure improved he was no longer complaining of chest pain. Discussed the rapid response with the [employer] TEACHER hospitalist Gabby Zhao. She is attempting to transfer the patient to an outside hospital.
--- NOTE | 2023-04-30 03:35 | PC.NURSE ---
Pt's blood pressure is 114/75, pulse is 131. SAO2 is 100 % with oxygen on at 2 liters. Pt doesnt voice any c/o chest pain at this time and appears to be resting comfortably.
[2023-04-30] MEDS: DEXTROSE 5%/LACTATED RINGERS 1,000 ML 100 ML IV CONT (03:44)
--- NOTE | 2023-04-30 04:05 | PC.NURSE ---
Spoke with My, from [facility]. States they will not have a bed available on their cardiac floor until later today. [facility] staff should call with condition changes or if other bed is found, # [phone], option 2 for Transfer Center.
--- NOTE | 2023-04-30 04:05 | PC.NURSE ---
Bari Zhao NP, called and said Dr. Groves, a hospitalist at [facility], has accepted patient but a bed will not be ready till later tonight (04/30/23) Harsh Zhao said that when pt has his EKG done in the AM, if the results show an ST elevation or depression indicative of a STEMI, then pt needs to be transferred immediatly to [facility] or [place], whichever facility can take him first.
--- NOTE | 2023-04-30 04:06 | PM.EVENT ---
Event Note Event Note Event Note: On-Call Hospitalist EVENT NOTE: Received a call from nurses around 2:20am that patient was having chest pain and pressure and had a BP of 198/170. Instructed them to call rapid response and get ED doc upstairs right away to see him. Also instructed them to get Troponin level and EKG now. Once Ed Dr. Vic Tineo (ED phone [phone]) arrived upstairs and saw pt., he gave Nitro x 1, patients BP dropped to 59/37, put into Trendelberg and 3L IVF Bolus given, BPs improved to 122/70, 106/80 but HR remains Sinus Tachycardia with HR 130s. ED Dr. Vic Caban reviewed the EKG and labs, examined and treated the patient. Patient's chest pain and chest pressure have now resolved. His Baseline HR prior to this event was HR 52-60s, bradycardic. CMP, CBC, Trop, CPK, and ABG was done and patient placed on 2 L O2 NC. Patient given 2 gm Mag IV. While patient's Trops, BNP, CPK are all significantly elevated, they continued to improve, even on the latest labs. [facility] supervisor shrimp pond Yael was called at [phone], who spoke with Dr. Huynh to see if patient could transfer to [facility], he was still on their Accepted for Transfer list, but they currently want him to go to an IMU or ICU bed, which they do not have open at this time. Yael will keep Eli updated. Also called [facility] Transfer Line, at [phone], spoke to My, who said only [facility] has beds, then connected to [facility] Hospitalist Dr. Cortes, who did accept patient for transfer, but they do not have a Telebed at this time, so he is on their Accepted for transfer list. Dr. Cortes said to [facility]. I agreed and inform [facility] Nurse Mccormick of this plan. I last spoke to [facility] Nurse Mccormick at [phone], informed her that if the patient has returning Chest pain or pressure, we will need to notify both Oliver and Radha of these changes. We also need to notify both Oliver and Radha right away, if the patient's EKGs ever show ST depression or ST elevation (STEMI or NSTEMI).
[2023-04-30 04:10] LABS: Lactate Dehydrogenase 406 U/L (85-227); Phosphorus 1.9 mg/dL (2.6-4.7)
--- NOTE | 2023-04-30 04:10 | PC.NURSE ---
Kunal Rehman RN, called and said Dr. Recio at [facility] has accepted patient for transfer to [facility] but didnt give a date or time. She said [facility] will be calling to get information on patient as well as give a time when a bed would be available. Will be awaiting call from [facility].
[2023-04-30 04:14] LABS: Creatine Kinase 2641 U/L (39-308); Magnesium 1.5 mg/dL (1.8-2.4)
--- NOTE | 2023-04-30 04:28 | PC.NURSE ---
New order for 2nd dose of magnesium 2 gm IVPB
--- NOTE | 2023-04-30 04:34 | PC.NURSE ---
At 0210: Pt HR noted to be 140, pt resting in bed, states he has insomnia and nausea. PRN Zofran given, BP noted to be 198/170. Pt states he has crushing chest pain at level 8/10. Charge nurse updated and DIESEL MECHANIC HELPER called. At 0215: Rapid response called. Manual BP 170/90 with carotid massage. 0220: ED Nurse, Erika, and tech Edna responded to rapid response. Erika started 2nd IV line, 20gauge to RFA. Pt states his pain level is down to a 5/10. 0239: BP 149/135 SPO2 97% RA, P 139, ED MD Tineo gave orders for Nitro SL, EKG CXR, and labs. ER nurse and tech retrieved EKG machine from ER. 0241: Nitro SL given per order. Pt continues to be A&Ox4. 0248: BP down to 59/37, pt unresponsive. Sternal rub given, pt able to say owe , placed in trendelenburg position, and become more alert. 0249: BP up to 77/52 P160 0252: Manual BP 122/50 with pulse 134. Xray arrived for CXR, pt placed in fowlers position for testing. 0307: O2 applied at 2L/NC for comfort, SPO2 at 97%. 0322: Mag rider hung per order. 0335: BP 114/75, P 131, SPO2 100% on 2L/NC.
--- NOTE | 2023-04-30 04:40 | PC.NURSE ---
Bari Zhao NP, contacted regarding an order for potassium phosphorus that she prescribed. She said that pt's blood phosphorus is very low and that pt needs IV potassium which would have to be mixed as it doesnt appear to be available in pharmacy. Will send message to pharmacy.
--- NOTE | 2023-04-30 05:41 | PC.NURSE ---
Dottie Segura, pt's niece, notified of pt's condition and possible transfer of pt to either [facility] or [facility]. Will keep niece posted on the situation.
[2023-04-30] MEDS: SODIUM CHLORIDE 0.9% IV 1,000 ML 100 ML IV CONT ×2 (06:39→17:00)
--- NOTE | 2023-04-30 06:40 | PC.NURSE ---
New order for 1000 ml NS 0.9% at 100 ml/hr
--- NOTE | 2023-04-30 07:00 | ECG_ITS ---
Measurements Intervals Remus Rate: 131 P: AL: 0 QRS: 119 QRSD: 134 T: 50 QT: 329 QTc: 487 Interpretive Statements ATRIAL FLUTTER/TACHYCARDIA WITH RAPID VENTRICULAR RESPONSE RIGHT AXIS DEVIATION [QRS AXIS > 100] RIGHT BUNDLE BRANCH BLOCK [120+ ms QRS DURATION, UPRIGHT V1, 40+ ms S IN I/aVL/V4/V5/V6] ABNORMAL ECG COMPARED TO ECG 04/30/2023 02:40:13 NO SIGNIFICANT CHANGE Electronically Signed On 04-30-2023 15:24:44 TRAIN CONTROLLER by Rm Weston M.D.
[2023-04-30] MEDS: POTASSIUM/PHOSPHORUS/SODIUM 1.5 GM PACKET 1 PACKET PO ×3 (08:38→17:28)
[2023-04-30] MEDS: SENNA/DOCUSATE SODIUM TABLET 1 TAB PO ×2 (08:39→17:29)
[2023-04-30] MEDS: ACETAMINOPHEN 325 MG TABLET 650 MG PO ×3 (08:39→17:29)
[2023-04-30] MEDS: GABAPENTIN 100 MG CAPSULE PO ×3 (08:40→17:29)
[2023-04-30] MEDS: HEPARIN SODIUM 5,000 UNITS/ML VIAL 5000 UNITS SUB-Q (08:40)
[2023-04-30] MEDS: PANTOPRAZOLE 40 MG TABLET PO (08:40)
[2023-04-30] MEDS: TAMSULOSIN HCL 0.4 MG CAPSULE PO (08:40)
[2023-04-30] MEDS: MAGNESIUM OXIDE 400 MG TABLET PO ×2 (08:41→17:28)
[2023-04-30] MEDS: LIDOCAINE 5% PATCH 2 PATCH TRANSDERM (08:41)
--- NOTE | 2023-04-30 09:12 | PM.IMPN ---
Progress Note: A&P Assessment and Plan (1) Bilateral hydronephrosis: Code(s): N13.30 - Unspecified hydronephrosis Status: Acute Assessment and Plan: IVF IV antibiotics (2) Rhabdomyolysis: Qualifiers: Rhabdomyolysis type: non-traumatic Qualified Code(s): M62.82 - Rhabdomyolysis Code(s): M62.82 - Rhabdomyolysis Status: Acute (3) Acute renal failure: Qualifiers: Acute renal failure type: unspecified Qualified Code(s): N17.9 - Acute kidney failure, unspecified Code(s): N17.9 - Acute kidney failure, unspecified Status: Acute (4) Non-STEMI (non-ST elevated myocardial infarction): Code(s): I21.4 - Non-ST elevation (NSTEMI) myocardial infarction Status: Acute Assessment and Plan: monitor Troponin IV heparin drip PTT monitor transfer to another hospital for Cardiology and or ICU . (5) Chest pain: Code(s): R07.9 - Chest pain, unspecified Status: Acute Subjective Date/time seen: 04/30/23 09:12 Interval history: Patient is on the wait list at [facility] in [place] and [facility] in [place] and [facility]. called and left 3 message for patient family to see how far they are wanting patient to be transferred to . Patient is asking to be transfer. as he has informed me he thought he was going to today his chest pain has seemed to resolve although he feels his fast heart beat. Heart rate remains elevated 120-130 patient is asymptomatic at this time. Patient heart rate is 138 and her blood pressure is low we will start on a heparin drip and we will monitor labs. We will continue to monitor. Troponin trending down we will continue to monitor current 1600 1515 call and spoke with [facility] THEY ARE EVALUATING IF THERE IS ANY BED DR ANN HAS ACCEPTED PATIENT AND HE WILL GO TO [facility] I HAVE ATTEMPTED TO CALL 4X WITH NO ANSWER CALLED AND SPOKE WITH NURSING AND INFORMED THEM THAT PATIENT IS TO BE TRANSFERRED TO [facility] Objective Data Vital Signs Vital Signs: Vital Signs - 24 hr 04/29/23 12:00 04/29/23 12:00 04/29/23 16:00 Temperature 97.2 F L Pulse Rate 58 L 64 62 Respiratory Rate 20 Blood Pressure 144/98 H Pulse Oximetry 94 Oxygen Delivery Room Air Oxygen Flow Rate 04/29/23 16:00 04/29/23 20:00 04/29/23 20:00 Temperature 98.2 F 97.5 F L Pulse Rate 62 64 64 Respiratory Rate 20 17 Blood Pressure 153/97 H 147/99 H Pulse Oximetry 96 100 Oxygen Delivery Room Air Oxygen Flow Rate 04/29/23 20:00 04/29/23 20:00 04/30/23 00:00 Temperature 97.5 F L Pulse Rate 64 64 61 Respiratory Rate 17 17 Blood Pressure 147/99 H Pulse Oximetry 100 100 Oxygen Delivery Room Air Room Air Oxygen Flow Rate 04/30/23 00:00 04/30/23 03:30 04/30/23 04:00 Temperature 97.6 F Pulse Rate 76 134 H 134 H Respiratory Rate 18 20 Blood Pressure Pulse Oximetry 98 97 Oxygen Delivery Room Air Nasal Cannula Oxygen Flow Rate 2 04/30/23 04:00 Temperature 97.1 F L Pulse Rate 133 H Respiratory Rate 20 Blood Pressure 114/75 Pulse Oximetry 100 Oxygen Delivery Nasal Cannula Oxygen Flow Rate 2 Intake/Output Intake/Output: Intake & Output 04/27/23 04/28/23 04/29/23 04/30/23 23:59 23:59 23:59 23:59 Intake Total 1999 3960 3743.333 Output Total 1000 1300 600 Balance 1000 2660 3143.333 Meds/Results Medications: Active Medications Generic Name Dose Route Start Last Admin Trade Name Freq PRN Reason Stop Dose Admin Acetaminophen 650 mg 04/30/23 09:00 04/30/23 08:39 Acetaminophen 325 Mg Tablet PO 650 mg TID NEO Administration Bisacodyl 10 mg 04/30/23 04:35 Bisacodyl 10 Mg Suppository RECTAL QAM PRN Constipation Gabapentin 100 mg 04/30/23 09:00 04/30/23 08:40 Gabapentin 100 Mg Capsule PO 100 mg TID NEO Administration Heparin Sodium (Porcine) 5,000 units 04/28/23 21:00 04/30/23 08:40
[2023-04-30 09:14] LABS: Hematocrit 32.9 % (37.0-46.0); Hemoglobin 11.2 g/dL (12.4-15.3); Mean Corpuscular Hemoglobin 32.4 pg (27.0-31.0); Mean Corpuscular Volume 95.1 fL (78.0-102.0); Mean Platelet Volume 10.3 fl (8.7-11.0); Platelet Count Result 170 K/mm3 (150-420); Red Blood Count 3.46 M/mm3 (4.70-6.10); Red Cell Distribution Width 12.9 % (11.6-14.4); White Blood Count 6.2 K/mm3 (4.8-10.8)
[2023-04-30 09:40] LABS: Alanine Aminotransferase 82 U/L (16-63); Albumin Level 2.5 g/dL (3.4-5.0); Alkaline Phosphatase 33 U/L (46-116); Anion Gap 6 mmol/L (8-16); Aspartate Amino Transferase 144 U/L (15-37); Bilirubin,Total 0.6 mg/dL (0.00-1.00); Blood Urea Nitrogen 32 mg/dL (7-18); CRP 1.1 mg/dL (0.0-0.9); Calcium 8.4 mg/dL (8.5-10.1); Carbon Dioxide 26 mmol/L (21-32); Chloride 101 mmol/L (98-108); Estimated CRCL calculation 26 ml/min; Estimated Glomerular Filt Rate 29; Glucose 163 mg/dL (70-99); Lactate Dehydrogenase 358 U/L (85-227); Lipase 44 U/L (16-77); NT Pro B Type Natriuretic Pept 7574 pg/mL (0-450); Osmolality Calculated 286 mOsm/kg (285-295); Phosphorus 1.7 mg/dL (2.6-4.7); Potassium 3.9 mmol/L (3.5-5.1); Sodium 133 mmol/L (136-145); Total Protein 4.9 g/dL (6.4-8.2)
[2023-04-30 09:41] LABS: Magnesium 1.9 mg/dL (1.8-2.4)
[2023-04-30 09:44] LABS: Creatine Kinase 2083 U/L (39-308)
[2023-04-30 09:46] LABS: Troponin I 1111.9 ng/L (0.00-60.4)
[2023-04-30 11:13] LABS: Partial Thromboplastin Time 26.8 SEC (23.90-30.70); Prothrombin Time 10.9 Seconds (9.50-12.10)
[2023-04-30] MEDS: HEPARIN SODIUM 5,000 UNITS/ML VIAL 4000 UNITS IV PUSH (11:58)
[2023-04-30] MEDS: HEPARIN SOD/D5W 100 UNITS/ML 25,000 UNITS/250 ML BAG 9 UNITS IV CONT (11:59)
--- NOTE | 2023-04-30 14:09 | PC.NURSE ---
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 claims he almost as good as before all this fall episode began. heart rate is sr on tlel with rates as 64-80. alert and orient. 1400 hr back up in 130-140'sc/o finger tips numb when attempting to use hands. but claims this has been going on and off for several months but more right now bp 95/50. 1410 hr back down to 70's. bp 105/54. cont to deny cp but finge tips feel numb.
--- NOTE | 2023-04-30 15:37 | PM.DS ---
DS: Admitting Diagnosis Discharge Date 04/30/2023 Admitting Diagnosis rHABDO, ELEVATED TROP , TACHYCARDIA, ACUTE KIDNEY INJURY DS: Discharge Diagnosis Discharge Diagnosis (1) Non-STEMI (non-ST elevated myocardial infarction): Code(s): I21.4 - Non-ST elevation (NSTEMI) myocardial infarction Status: Acute Assessment and Plan: monitor Troponin IV heparin drip PTT monitor transfer to another hospital for Cardiology and or ICU . (2) Rhabdomyolysis: Qualifiers: Rhabdomyolysis type: non-traumatic Qualified Code(s): M62.82 - Rhabdomyolysis Code(s): M62.82 - Rhabdomyolysis Status: Acute (3) Acute renal failure: Qualifiers: Acute renal failure type: unspecified Qualified Code(s): N17.9 - Acute kidney failure, unspecified Code(s): N17.9 - Acute kidney failure, unspecified Status: Acute DS: Summary Hospital Course Reason for hospitalization: RHABDO, ELEVATED TROP, ACUTE CHEST PAIN, Hospital Course: This is a 82 year old male was admitted to the hospital with rhabdomyolysis. Initially , he was being treated solely for rhabdo, but the troponin level were found to be elevated, reaching as high as 3000/ thy have since decreased to 1100/ The patient has been experience chest pain, numbness, and tingling in his arms. He has been on the transfer list for multiple hospitals and has a past medical history of hypertension, hyperlipidemia. Patient has since been hypotensive, tachycardic has been receiving IVF. I started him on a heparin drip for non Stemi due to the tachycardia and inability to give anything due to hypotension. Patient states the he wants everything done and would like to be transferred to another hospital. I [facility] [place] [facility] he has been accept [facility] Dr. Hernandez has accepted patient. I have attempted to call family on several attempts with no answer called several different numbers. Nursing staff informed and case management Patient expressed desire to be seen by sheet metal foreman necessitating a transfer. A heparin drip has been initiated for patient along with frequent PTT needs to be monitored he will go to ICU. AST levels are elevated at 139, alt is 57, magnesium low 1.5, creatinine 2.24, bun 42, sodium 132, ABG show alkalosis with WBC within normal limits. Family was gotten a hold of and I spoke with them and informed themm that patient would be transferred. Time Spent with Patient Time attestation: Total time spent providing and/or coordinating discharge services: Exam Narrative: PHYSICAL EXAM APPEARANCE: No apparent distress. Head: atraumatic. EYES:? EOMI, NOSE: Atraumatic NECK: Trachea midline RESPIRATORY: No increased rate of breathing, CLEAR, no wheezing, no rhohchi, no crackles. CARDIOVASCULAR: RRR,no chest pain , no palpitaitons, no chest pressure ABDOMINAL: Non-distended MUSCULOSKELETAl: severely weak, moves all extremities, significant tremors and Parkinson's like posturing NEURO: Alert. Moving 4/4 extremities, severe weakness and balance difficulties. SKIN:: Warm, dry. Normal color PSYCHIATRIC: Normal affect DS: Data Data Completed and Pending Labs on day of discharge: Labs from last 24 hours 04/30/23 04/30/23 04/30/23 09:10 02:50 02:47 WBC 6.2 7.5 RBC 3.46 L 3.53 L Hgb 11.2 L 11.3 L Hct 32.9 L 33.9 L MCV 95.1 96.0 MCH 32.4 H 32.0 H MCHC 34.0 33.3 RDW 12.9 13.0 Plt Count 170 169 MPV 10.3 10.7 Immature Gran % (Auto) 0.4 H Neut % (Auto) 62.4 Lymph % (Auto) 25.7 [place] % (Auto) 8.2 Eos % (Auto) 2.5 Baso % (Auto) 0.8 Lymph # (Auto) 1.93 [place] # (Auto) 0.62 Eos # (Auto) 0.19 Baso # (Auto) 0.06 Abs Immat Gran (auto) 0.03 H Absolute Neuts (auto) 4.7 Absolute Nucleated RBC 0.00 Nucleated RBC % 0.0 PT INR APTT Puncture Site Left radial ABG pH 7.48 H ABG pCO
--- NOTE | 2023-04-30 16:07 | PC.NURSE ---
Pts Dottie james , notified of patient's transfer to [facility] in [facility], Room 3224.
--- NOTE | 2023-04-30 16:34 | PC.NURSE ---
1630 hr remains down in 70's. denies cp. [facility] janiceon will not take. [facility] [place] operated [facility] is in route.
--- NOTE | 2023-04-30 17:51 | PCPTNOTE ---
Per nursing this am advised to hold pt due to increase in heart rate and awaiting transfer to another facility. Pt not seen for PT this date.
--- NOTE | 2023-04-30 18:04 | PC.NURSE ---
1745 gaas here. report given to staff. hr 70's per tele. alert and orient. jackson intact with cristal urine. family at bedside. gave patient a cell phone and associate professor to take with him. heparin gtt cont with iv ns. lizzette callled at [facility] and let know patient in ambulance.
== END 2023-04-30 17:45 | disposition short-term general hospital (02) | DRG 558 ==
LOC: CHSED 17:25 → CHS2ND 19:25
PROVIDERS: Emergency Medicine; Nurse Practitioner; Admitting Provider Internal Medicine; Emergency Provider Emergency Medicine; PCP Nurse Practitioner Family; Visit Provider Nurse Practitioner Family
DX: M62.82 Rhabdomyolysis (principal); N17.9 Acute kidney failure, unspecified; N18.4 Chronic kidney disease, stage 4 (severe); I24.89 Other forms of acute ischemic heart disease; I12.9 Hypertensive chronic kidney disease with stage 1 through stage 4 chronic kidney disease, or unspecified chronic kidney disease; M19.91 Primary osteoarthritis, unspecified site; R77.8 Other specified abnormalities of plasma proteins; R00.1 Bradycardia, unspecified; R33.9 Retention of urine, unspecified; R79.89 Other specified abnormal findings of blood chemistry; I45.10 Unspecified right bundle-branch block; R07.9 Chest pain, unspecified; R00.0 Tachycardia, unspecified
CPT/HCPCS: 36415; 36600; 70450; 71045; 71250; 72125; 74176; 76775; 80053; 81001; 82375; 82550; 82805; 83050; 83605; 83615; 83690; 83735; 83880; 84100; 84484; 85025; 85027; 85610; 85652; 85730; 86140; 87040; 87086; 87088; 93005; 96360; 96361; 97161; 97165; 97535; 99285; A9270; C8929; G0378; J1644; J2405; J3475; J7030; J7120; J7121

== ENCOUNTER 2023-05-28 16:35 | Outpatient (CLI) | payer OTHER, SELFPAY ==
[2023-05-28 16:44] LABS: Basophils Absolute Auto 0.05 K/mm3 (0.00-0.10); Basophils Percent Auto 0.4 % (0.0-1.0); Eosinophils Absolute Auto 0.28 K/mm3 (0.02-0.50); Eosinophils Percent Auto 2.5 % (1.0-6.0); Hematocrit 32.6 % (37.0-46.0); Hemoglobin 10.4 g/dL (12.4-15.3); Immature Granulocyte Absolute 0.07 K/mm3 (0.00-0.00); Immature Granulocyte Percent A 0.6 % (0.0-0.0); Lymphocytes Absolute Auto 1.26 K/mm3 (1.10-4.50); Mean Corpuscular HGB Conc 31.9 g/dL (32.0-36.0); Mean Platelet Volume 10.2 fl (8.7-11.0); Monocytes Absolute Auto 1.26 K/mm3 (0.10-0.90); Neutrophils Absolute Auto 8.5 K/mm3 (1.7-7.2); Neutrophils Percent Auto 74.5 % (50.0-70.0); Platelet Count Result 285 K/mm3 (150-420); Red Blood Count 3.36 M/mm3 (4.70-6.10); Red Cell Distribution Width 12.9 % (11.6-14.4); White Blood Count 11.4 K/mm3 (4.8-10.8)
[2023-05-28 16:45] LABS: Bilirubin Urine Negative (Negative); Blood Urine 1+ (Negative); Color Urine Yellow (Yellow); Glucose Urine UA Negative (Negative); Ketones Urine Negative (Negative); Leukocyte Esterase Ur 3+ LEU/UL (Negative); Nitrate Urine Negative (Negative); Protein Urine Trace (Negative); Specific Grav Ur 1.015 (1.010-1.020); Urobilinogen Urine 0.2 mg/dL (0.2-1.0)
[2023-05-28 16:50] LABS: Add Urine Microscopic? YES; Appearance Urine Cloudy (Clear); RBC Urine None seen /hpf (0-2)
[2023-05-28 16:51] LABS: Bacteria Urine 1+ /hpf; Squamous Epithelial Cell Urine Rare /hpf (Few); WBC Urine >75 /hpf (0-3)
[2023-05-28 17:30] LABS: Alanine Aminotransferase 19 U/L (16-63); Albumin Level 3.3 g/dL (3.4-5.0); Alkaline Phosphatase 89 U/L (46-116); Anion Gap 9 mmol/L (8-16); Aspartate Amino Transferase 33 U/L (15-37); Bilirubin,Total 0.6 mg/dL (0.00-1.00); Blood Urea Nitrogen 26 mg/dL (7-18); Carbon Dioxide 28 mmol/L (21-32); Chloride 97 mmol/L (98-108); Estimated Glomerular Filt Rate 33; Glucose 97 mg/dL (70-99); Iron 12 ug/dL (65-175); Magnesium 1.7 mg/dL (1.8-2.4); NT Pro B Type Natriuretic Pept 3672 pg/mL (0-450); Osmolality Calculated 282 mOsm/kg (285-295); Potassium 3.8 mmol/L (3.5-5.1); Sodium 134 mmol/L (136-145); Vitamin B12 386 pg/mL (193-986)
[2023-06-01 22:50] LABS: Vitamin D 25 Hydroxy 13 ng/mL (30-100)
== END 2023-05-28 16:36 | disposition home or self-care (01) ==
PROVIDERS: PCP Nurse Practitioner Family; Visit Provider Nurse Practitioner Family
DX: I12.9 Hypertensive chronic kidney disease with stage 1 through stage 4 chronic kidney disease, or unspecified chronic kidney disease (principal); R79.89 Other specified abnormal findings of blood chemistry; N28.9 Disorder of kidney and ureter, unspecified; R53.83 Other fatigue; N18.4 Chronic kidney disease, stage 4 (severe); N17.9 Acute kidney failure, unspecified; Z79.899 Other long term (current) drug therapy; R82.90 Unspecified abnormal findings in urine; I50.9 Heart failure, unspecified
CPT/HCPCS: 36415; 80053; 81001; 82306; 82607; 83540; 83735; 83880; 85025; 87077; 87086; 87088; 87186

== ENCOUNTER 2023-06-13 08:52 | Outpatient (CLI) | payer OTHER, SELFPAY ==
[2023-06-13 09:13] VITALS: BP 156/80; PULSE 68; RESP 16; TEMP 36.6; O2SAT 97; BMI 24.9
[2023-06-13] MEDS: IRON SUCROSE COMPLEX 300 MG in SODIUM CHLORIDE 0.9% IV 250 ML 125 MG IVPB (09:30)
--- NOTE | 2023-06-13 11:36 | PC.NURSE ---
Patient here for #1 of 3 IV Venofer infusions. Education given. All concerns voiced answered. IV Venofer administered see MAR. Tolerated well. Will return 06/20/23 at 0930 for #2 of 3. Safe exit of hospital per staff/patient ambulatory.
== END 2023-06-13 08:53 | disposition home or self-care (01) ==
PROVIDERS: PCP Nurse Practitioner Family; Visit Provider Nurse Practitioner Family
DX: D50.9 Iron deficiency anemia, unspecified (principal)
CPT/HCPCS: 96365; 96366; J1756; J7050

== ENCOUNTER 2023-06-23 10:13 | Outpatient (CLI) | payer OTHER, SELFPAY ==
[2023-06-23 10:40] VITALS: BP 131/64; PULSE 60; RESP 14; TEMP 36.6; O2SAT 97; BMI 24.9
[2023-06-23] MEDS: IRON SUCROSE COMPLEX 300 MG in SODIUM CHLORIDE 0.9% IV 250 ML 125 MG IVPB (10:45)
[2023-06-23 12:53] VITALS: BP 121/69; PULSE 64; RESP 16; O2SAT 96
--- NOTE | 2023-06-23 13:00 | PC.NURSE ---
Patient here for Venofer #2 of #3. Education reviewed with patient. No concerns voiced. IV Venofer administered. See MAR. Tolerated well. Safe exit of hospital -per staff accompanied patient over to clinic where he has appt. with Chica SOTO at 1300.
== END 2023-06-23 12:58 | disposition home or self-care (01) ==
PROVIDERS: PCP Nurse Practitioner Family; Visit Provider Nurse Practitioner Family
DX: D50.9 Iron deficiency anemia, unspecified (principal)
CPT/HCPCS: 96365; 96366; J1756; J7050

== ENCOUNTER 2023-06-30 10:27 | Outpatient (CLI) | payer OTHER, SELFPAY ==
[2023-06-30 10:49] VITALS: BP 113/67; PULSE 68; RESP 16; TEMP 36.3; O2SAT 96; BMI 24.9
[2023-06-30] MEDS: IRON SUCROSE COMPLEX 300 MG in SODIUM CHLORIDE 0.9% IV 250 ML 125 MG IVPB (11:00)
--- NOTE | 2023-06-30 13:11 | PC.NURSE ---
Patient here for #3 of 3 IV Venofer infusions. Education given. All concerns voiced answered. IV Venofer administered. SEE MAR. Tolerated well. Safe exit to car in w/c with staff.
== END 2023-06-30 13:15 | disposition home or self-care (01) ==
LOC: CHSTREATRM 10:29
PROVIDERS: PCP Nurse Practitioner Family; Visit Provider Nurse Practitioner Family
DX: D50.9 Iron deficiency anemia, unspecified (principal)
CPT/HCPCS: 96365; 96366; J1756; J7050

== ENCOUNTER 2023-09-10 16:02 | Emergency (ER) | payer OTHER, SELFPAY ==
[2023-09-10] VITALS (15 sets, daily range): BP systolic 124–175; BP diastolic 72–93; PULSE 43–61; RESP 15–20; TEMP 36.7–36.9; O2SAT 92–100
--- NOTE | ~2023-09-10 | XR_ITS ---
EXAMINATION: XR chest 1V portable DATE: 09/10/2023 16:34 INDICATION: Weakness. TECHNIQUE: A single frontal view of the chest was obtained. COMPARISON: Chest view 04/30/2023 FINDINGS: There is no pneumonia, pleural effusion, or pneumothorax. The heart size is normal. IMPRESSION: 1. No acute cardiopulmonary disease. Reviewed, dictated and finalized at location A.
--- NOTE | 2023-09-10 16:20 | ECG_ITS ---
SEE SCANNED COPY FOR CONFIRMED REPORT. MTDD
--- NOTE | 2023-09-10 16:20 | ED.WEAKNESS ---
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 No syncopal spells. No chest pain or shortness of breath. The patient's blood pressure has been stable. He went to his primary care physician's office where he was noted to have generalized weakness with a heart rate in the 40s for which he was transferred to the ER. Other than weakness the patient does not have any other complaints. MD Complaint: generalized weakness Onset (ago): week(s) ( 3 weeks) Duration: constant Location: generalized Migration: none Severity: moderate Relieving factors: none Exacerbating factors: none Associated symptoms: denies other symptoms Related Data Home Medications Medication Instructions Recorded Confirmed polyethylene glycol 3350 17 gram 17 g PO DAILY PRN Constipation 05/13/23 09/10/23 oral powder packet (Miralax) Allergies Allergy/AdvReac Type Severity Reaction Status Date / Time amlodipine Allergy Intermediate angioedema Verified 09/10/23 16:09 Beta margarita AdvReac Severe Bradycardia Uncoded 09/10/23 16:09 Review of Systems Review of Systems: All systems reviewed & are unremarkable except as noted in HPI and below Constitutional: Constitutional: Reports as per HPI and Reports no additional constitutional complaints Eyes: Eyes: Reports as per HPI and Reports no additional eye complaints ENT: Reports system reviewed and no additional complaints, except as documented and Reports as per HPI Comments: hard of hearing Cardiovascular: Cardiovascular: Reports as per HPI and Reports no additional cardiovascular complaints Respiratory: Respiratory: Reports as per HPI and Reports no additional respiratory complaints Gastrointestinal: Gastrointestinal: Reports as per HPI and Reports no additional gastrointestinal complaints Genitourinary: Genitourinary: Reports no additional male genitourinary complaints and Reports as per HPI Musculoskeletal: Musculoskeletal: Reports no additional musculoskeletal complaints and Reports as per HPI Integumentary/Breasts: Skin/Breast: Reports system reviewed and no additional complaints, except as docu and Reports as per HPI Neurologic: Reports system reviewed and no additional complaints, except as documented and Reports as per HPI Psychiatric: Psychiatric: Reports no additional psychiatric complaints and Reports as per HPI Endocrine: Endocrine: Reports no additional endocrine complaints and Reports as per HPI Hematologic/Lymphatic: Hematologic/Lymphatic: Reports no additional hematologic/lymphatic complaints and Reports as per HPI Allergic/Immunologic: Allergic/Immunologic: Reports no additional allergic/immunologic complaints and Reports as per HPI [facility] Past Medical History Medical History Erectile dysfunction HTN (hypertension) Kidney function abnormal Primary osteoarthritis Surgical History Surgical History No pertinent past surgical history Family History Family History Father Stomach cancer Sibling Brain cancer Other Pancreatic cancer Mother Heart disease Cause of : CHF Social History Social History Social History: , lives alone with his cat, no biological children, estranged from his 4 step children. Closest relative is Nora hicks his sister. 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
[2023-09-10 16:39] LABS: Basophils Absolute Auto 0.05 K/mm3 (0.00-0.10); Basophils Percent Auto 0.7 % (0.0-1.0); Hematocrit 37.9 % (37.0-46.0); Hemoglobin 12.7 g/dL (12.4-15.3); Immature Granulocyte Absolute 0.03 K/mm3 (0.00-0.00); Immature Granulocyte Percent A 0.4 % (0.0-0.0); Lymphocytes Absolute Auto 1.74 K/mm3 (1.10-4.50); Lymphocytes Percent Auto 23.1 % (18.0-42.0); Mean Corpuscular HGB Conc 33.5 g/dL (32-36); Mean Corpuscular Hemoglobin 31.4 pg (27.0-31.0); Mean Corpuscular Volume 93.8 fL (78.0-102.0); Mean Platelet Volume 9.9 fl (8.7-11.0); Neutrophils Absolute Auto 4.81 K/mm3 (1.70-7.20); Neutrophils Percent Auto 63.8 % (50.0-70.0); Platelet Count Result 246 K/mm3 (150-420); Red Blood Count 4.04 M/mm3 (4.70-6.10); Red Cell Distribution Width 13.4 % (11.6-14.4); White Blood Count 7.5 K/mm3 (4.8-10.8)
[2023-09-10 16:54] LABS: Partial Thromboplastin Time 25.7 Sec (23.9-30.70); Prothrombin Time 10.7 Seconds (9.50-12.1)
[2023-09-10 16:59] LABS: Lactic Acid Reflex 0.7 mmol/L (0.4-2.0)
[2023-09-10 17:07] LABS: Alanine Aminotransferase 17 U/L (16-63); Albumin Level 3.8 g/dL (3.4-5.0); Alkaline Phosphatase 53 U/L (46-116); Anion Gap 9 mmol/L (4-12); Aspartate Amino Transferase 15 U/L (15-37); Bilirubin,Total 0.7 mg/dL (0.00-1.00); Blood Urea Nitrogen 27 mg/dL (7-18); Carbon Dioxide 29 mmol/L (21-32); Chloride 100 mmol/L (98-108); Estimated CRCL calculation 26 ml/min; Estimated Glomerular Filt Rate 32; Glucose 99 mg/dL (70-99); Lipase 33 U/L (16-77); Magnesium 1.7 mg/dL (1.8-2.4); Osmolality Calculated 291 mOsm/kg (285-295); Sodium 138 mmol/L (136-145); Thyroid Stimulating Hormone 3.22 uIU/mL (0.36-3.74)
[2023-09-10] MEDS: GLUCAGON FOR INJ 1 MG VIAL IM (17:08)
== END 2023-09-10 18:32 | disposition home or self-care (01) ==
PROVIDERS: Emergency Provider Internal Medicine Critical Care Medicine; PCP Nurse Practitioner Family
DX: R00.1 Bradycardia, unspecified (principal); I12.9 Hypertensive chronic kidney disease with stage 1 through stage 4 chronic kidney disease, or unspecified chronic kidney disease; N18.4 Chronic kidney disease, stage 4 (severe); Z85.46 Personal history of malignant neoplasm of prostate; E78.5 Hyperlipidemia, unspecified
CPT/HCPCS: 36415; 71045; 80053; 83605; 83690; 83735; 84443; 84484; 85025; 85610; 85730; 93005; 96372; 99284; J1610

== ENCOUNTER 2023-09-11 16:05 | Observation (INO) | payer OTHER, SELFPAY ==
[2023-09-11] VITALS (13 sets, daily range): BP systolic 112–181; BP diastolic 73–92; PULSE 67–87; RESP 12–21; TEMP 36.6; O2SAT 95–99; BMI 23.9
--- NOTE | ~2023-09-11 | XR_ITS ---
XR chest 1V portable 09/11/2023 17:02 Indication: Generalized weakness Procedure: AP portable chest Comparison: 09/10/2023 and 04/30/2023 Findings: Heart size normal. Right lung clear. There are ill-defined opacities of the left mid and lo wer thorax. No significant effusion. No edema. No pneumothorax. Impression: 1: Ill-defined infiltrates left mid and lower thorax which may represent atelectasis or pneumonia. Reviewed, dictated and finalized at location B. Impression: 1: Ill-defined infiltrates left mid and lower thorax which may represent atelec tasis or pneumonia.
--- NOTE | 2023-09-11 16:17 | ECG_ITS ---
SEE SCANNED COPY FOR CONFIRMED REPORT MTDD
[2023-09-11 16:33] LABS: Basophils Absolute Auto 0.06 K/mm3 (0.00-0.10); Basophils Percent Auto 0.7 % (0.0-1.0); Eosinophils Absolute Auto 0.27 K/mm3 (0.02-0.50); Eosinophils Percent Auto 3.1 % (1.0-6.0); Hematocrit 40.6 % (37.0-46.0); Hemoglobin 13.5 g/dL (12.4-15.3); Immature Granulocyte Absolute 0.03 K/mm3 (0.00-0.00); Immature Granulocyte Percent A 0.3 % (0.0-0.0); Lymphocytes Absolute Auto 1.63 K/mm3 (1.10-4.50); Lymphocytes Percent Auto 18.5 % (18.0-42.0); Mean Corpuscular HGB Conc 33.3 g/dL (32-36); Mean Corpuscular Volume 93.1 fL (78.0-102.0); Mean Platelet Volume 9.7 fl (8.7-11.0); Monocytes Absolute Auto 0.68 K/mm3 (0.10-0.90); Monocytes Percent Auto 7.7 % (2.0-11.0); Neutrophils Absolute Auto 6.13 K/mm3 (1.70-7.20); Neutrophils Percent Auto 69.7 % (50.0-70.0); Platelet Count Result 274 K/mm3 (150-420); Red Blood Count 4.36 M/mm3 (4.70-6.10); Red Cell Distribution Width 13.2 % (11.6-14.4); White Blood Count 8.8 K/mm3 (4.8-10.8)
[2023-09-11] MEDS: SODIUM CHLORIDE 0.9% IV 500 ML 999 ML IV CONT ×2 (16:36→17:50)
[2023-09-11 16:51] LABS: Lactic Acid Reflex 1.1 mmol/L (0.4-2.0)
[2023-09-11 16:56] LABS: Alanine Aminotransferase 14 U/L (16-63); Albumin Level 4.2 g/dL (3.4-5.0); Alkaline Phosphatase 53 U/L (46-116); Anion Gap 12 mmol/L (4-12); Aspartate Amino Transferase 16 U/L (15-37); Bilirubin,Total 0.8 mg/dL (0.00-1.00); Blood Urea Nitrogen 34 mg/dL (7-18); Calcium 10.7 mg/dL (8.5-10.1); Carbon Dioxide 25 mmol/L (21-32); Chloride 101 mmol/L (98-108); Estimated CRCL calculation 24 ml/min; Estimated Glomerular Filt Rate 30; Glucose 113 mg/dL (70-99); NT Pro B Type Natriuretic Pept 382 pg/mL (0-450); Osmolality Calculated 294 mOsm/kg (285-295); Sodium 138 mmol/L (136-145); Total Protein 7.8 g/dL (6.4-8.2)
[2023-09-11 17:09] LABS: Influenza A QL RT-PCR Negative (Negative); Influenza B QL RT-PCR Negative (Negative); RSV RNA, RT-PCR Negative (Negative); SARS-CoV-2 RNA PCR Negative (Negative)
--- NOTE | 2023-09-11 17:13 | ED.WEAKNESS ---
HPI - Weakness General Chief complaint: Weakness Stated complaint: weakness Source: patient Mode of arrival: ambulatory Limitations: no limitations History of Present Illness HPI Narrative: this is a an 83-year-old male with history of chronic kidney disease and hypertension. Was seen yesterday in the ER and is on metoprolol for hypertension but has been causing significant bradycardia and his metoprolol has been discontinued and heart rate currently is 80. Patient has been having generalized weakness over the last 2 days with no chest pain no shortness of breath no nausea vomiting no diarrhea constipation. Patient has not had any fever chills no recent falls and no neurological deficits. Complaint: generalized weakness Onset (ago): day(s) Duration: constant Location: generalized Severity: moderate Related Data Home Medications Medication Instructions Recorded Confirmed polyethylene glycol 3350 17 gram 17 g PO DAILY PRN Constipation 05/13/23 09/11/23 oral powder packet (Miralax) Allergies Allergy/AdvReac Type Severity Reaction Status Date / Time amlodipine Allergy Intermediate angioedema Verified 09/11/23 16:38 Beta margarita AdvReac Severe Bradycardia Uncoded 09/11/23 16:38 Review of Systems Review of Systems: All systems reviewed & are unremarkable except as noted in HPI and below PMFSH Past Medical History Medical History Erectile dysfunction HTN (hypertension) Kidney function abnormal Primary osteoarthritis Surgical History Surgical History No pertinent past surgical history Family History Family History Father Stomach cancer Sibling Brain cancer Other Pancreatic cancer Mother Heart disease Cause of : CHF Social History Social History Social History: , lives alone with his cat, no biological children, estranged from his 4 step children. Closest relative is Nora hicks his sister. 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 Smoking status: Never smoker Tobacco type: cigarettes Second hand tobacco smoke exposure: No Alcohol intake: never Substance use: never Substance use type: does not use Do You Feel Safe in your Home?: Yes Lack of Transportation: No Lack of Food: Never True Current Housing: I Have Housing Concerned About Future Housing: No Difficulty Paying Gas/Electric Bills: No Difficulty Paying for Meds: No Currently Unemployed: No Education: Bachelor's Degree Difficulty w/ Childcare or Family Care: No Spiritual care concerns: No Exam Const: General: healthy appearing, no acute distress and alert Nutritional Appearance: well nourished and thin Orientation/consciousness: patient oriented x3 Limitations: no limitations Neck: Neck: normal visual inspection, no lymphadenopathy and no meningeal signs Chest: Chest palpation & inspection: normal inspection of the chest Resp: Effort & Inspection: normal respiratory effort Auscultation: clear to auscultation bilaterally Cardio: Rate: regular rate Rhythm: regular rhythm GI: GI Palp: Yes Soft to palpation Auscultation: normal bowel sounds Urinary Catheter: Urinary Catheter: patent and draining Back/Spine/Pelvis: Back: no CVA tenderness Skin: General skin exam: normal color Rashes: no rashes Neuro: General: patient oriented x3, moves all extremities, no meningeal signs and no focal motor deficits Extrem: General: normal to inspection Course Course Emergency Course: Patient received a L of fluids and had chest x-ray performed which shows opacities mid left lung field consistent with pneumonia and started ceftriaxone along with azithromycin IV. Labs reviewed and his kidney function has diminished slightly compare
[2023-09-11] MEDS: AZITHROMYCIN 500 MG/NS 250 ML 500 MG/250 ML BAG 250 MG IVPB (18:19)
[2023-09-11] MEDS: SODIUM CHLORIDE 0.9% IV 1,000 ML 100 ML IV CONT (19:07)
--- NOTE | 2023-09-11 19:13 | ADMGEN ---
This patient, River Sandhu, was admitted to 2nd Floor Room 204-1. Patient/family oriented to hospital policies and general routines including ID bracelet, bed and alarms, visiting hours, pain management, procedures, bathroom and other care routines, personal items, smoking policy, room service/diet, and visiting hours. Information on how to activate the Rapid Response Team has been discussed. Patient/Family are encouraged to report perceived risks to care and to ask questions if they do not understand what they are told or what they should do.
[2023-09-11] MEDS: IPRATROPIUM 0.5 MG/ALBUTEROL SULFATE 2.5 MG AMPUL.NEB 3 ML INHALATION (19:57)
[2023-09-11 22:13] LABS: Appearance Urine Clear (Clear); Bilirubin Urine Negative (Negative); Blood Urine Negative (Negative); Color Urine Yellow (Yellow); Glucose Urine UA Negative (Negative); Ketones Urine Negative (Negative); Leukocyte Esterase Ur Negative LEU/UL (Negative); Nitrate Urine Negative (Negative); Protein Urine Negative (Negative); Urobilinogen Urine 0.2 mg/dL (0.2-1.0); pH Urine 6.5 (5.0-8.0)
[2023-09-11 22:15] LABS: Add Urine Microscopic? NO
[2023-09-12] VITALS (8 sets, daily range): BP systolic 178; BP diastolic 58–64; PULSE 55–74; RESP 16–20; TEMP 36.1–36.4; O2SAT 93–99
[2023-09-12] MEDS: IPRATROPIUM 0.5 MG/ALBUTEROL SULFATE 2.5 MG AMPUL.NEB 3 ML INHALATION ×3 (00:21→12:55)
[2023-09-12] MEDS: SODIUM CHLORIDE 0.9% IV 1,000 ML 100 ML IV CONT (05:10)
[2023-09-12 05:34] LABS: Basophils Absolute Auto 0.06 K/mm3 (0.00-0.10); Basophils Percent Auto 0.8 % (0.0-1.0); Eosinophils Absolute Auto 0.34 K/mm3 (0.02-0.50); Eosinophils Percent Auto 4.4 % (1.0-6.0); Hematocrit 34.4 % (37.0-46.0); Hemoglobin 11.5 g/dL (12.4-15.3); Immature Granulocyte Absolute 0.04 K/mm3 (0.00-0.00); Immature Granulocyte Percent A 0.5 % (0.0-0.0); Lymphocytes Absolute Auto 2.47 K/mm3 (1.10-4.50); Lymphocytes Percent Auto 31.6 % (18.0-42.0); Mean Corpuscular HGB Conc 33.4 g/dL (32-36); Mean Corpuscular Hemoglobin 31.3 pg (27.0-31.0); Mean Corpuscular Volume 93.5 fL (78.0-102.0); Monocytes Absolute Auto 0.76 K/mm3 (0.10-0.90); Monocytes Percent Auto 9.7 % (2.0-11.0); Neutrophils Absolute Auto 4.14 K/mm3 (1.70-7.20); Platelet Count Result 227 K/mm3 (150-420); Red Blood Count 3.68 M/mm3 (4.70-6.10); Red Cell Distribution Width 13.3 % (11.6-14.4); White Blood Count 7.8 K/mm3 (4.8-10.8)
[2023-09-12 05:57] LABS: Alkaline Phosphatase 44 U/L (46-116); Anion Gap 9 mmol/L (4-12); Aspartate Amino Transferase 14 U/L (15-37); Bilirubin,Total 0.4 mg/dL (0.00-1.00); Blood Urea Nitrogen 29 mg/dL (7-18); Calcium 9.3 mg/dL (8.5-10.1); Carbon Dioxide 28 mmol/L (21-32); Chloride 105 mmol/L (98-108); Estimated CRCL calculation 29 ml/min; Estimated Glomerular Filt Rate 38; Glucose 86 mg/dL (70-99); NT Pro B Type Natriuretic Pept 463 pg/mL (0-450); Osmolality Calculated 298 mOsm/kg (285-295); Potassium 3.5 mmol/L (3.5-5.1); Sodium 142 mmol/L (136-145); Total Protein 5.9 g/dL (6.4-8.2)
[2023-09-12 05:59] LABS: Alanine Aminotransferase < 6 U/L (16-63)
--- NOTE | 2023-09-12 07:40 | ECG_ITS ---
SEE SCANNED COPY FOR CONFIRMED REPORT MTDD
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
[2023-09-12 08:26] LABS: Iron 103 ug/dL (65-175); Percent Iron Saturation 43 % (12-57)
[2023-09-12] MEDS: LOSARTAN POTASSIUM 50 MG TABLET PO (08:53)
[2023-09-12] MEDS: CARBIDOPA/LEVODOPA 10/100 MG TABLET 1 TABLET PO (08:53)
[2023-09-12] MEDS: TAMSULOSIN HCL 0.4 MG CAPSULE BY MOUTH (08:53)
[2023-09-12] MEDS: FUROSEMIDE 20 MG TABLET PO (08:54)
--- NOTE | 2023-09-12 15:10 | PC.NURSE ---
1450 friend here for him. meds and orders went over. vocalize an understanding.
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
== END 2023-09-12 14:50 | disposition home or self-care (01) ==
LOC: CHSED 17:20 → CHS2ND 17:55
PROVIDERS: Nurse Practitioner Acute Care; Admitting Provider Internal Medicine; Emergency Provider Emergency Medicine; PCP Nurse Practitioner Family; Visit Provider Internal Medicine
DX: R53.1 Weakness (principal); N17.9 Acute kidney failure, unspecified; N18.9 Chronic kidney disease, unspecified; I12.9 Hypertensive chronic kidney disease with stage 1 through stage 4 chronic kidney disease, or unspecified chronic kidney disease; J18.9 Pneumonia, unspecified organism; R26.89 Other abnormalities of gait and mobility; R00.1 Bradycardia, unspecified; E86.0 Dehydration; I25.2 Old myocardial infarction; R25.1 Tremor, unspecified; D50.9 Iron deficiency anemia, unspecified; K59.00 Constipation, unspecified; M19.91 Primary osteoarthritis, unspecified site; Z20.822 Contact with and (suspected) exposure to COVID-19
CPT/HCPCS: 36415; 71045; 80053; 81003; 83540; 83550; 83605; 83880; 85025; 87040; 87637; 93005; 94640; 96361; 96365; 96367; 99285; A9270; G0378; J0456; J0696; J7030; J7040